=== PATIENT | male | born 1940 | race Caucasian/White ===

== ENCOUNTER → 2018-09-02 12:37 | Outpatient (POV) | payer MEDICARE, SELFPAY | PROVIDERS: Visit Provider Dermatology | DX: Z00.00 Encounter for general adult medical examination without abnormal findings (principal) ==

== ENCOUNTER → 2018-09-30 16:52 | Outpatient (POV) | payer MEDICARE, SELFPAY | PROVIDERS: Visit Provider Dermatology | DX: Z00.00 Encounter for general adult medical examination without abnormal findings (principal) ==

== ENCOUNTER → 2018-12-19 08:43 | Outpatient (CLI) | payer MEDICARE, SELFPAY ==
--- NOTE | 2018-12-19 08:46 | US_ITS ---
PROCEDURE: US GALLBLADDER CLINICAL INDICATION: gallstones Nausea and vomiting 1 week COMPARISON: [id number] CT abdomen pelvis w con from 12/10/2018 FINDINGS: Gallbladder: Cholelithiasis. Multiple, numerous small gallstones collecting at dependent gallbladder.. These correlate with the CT image from 12/10/2018 Gallbladder wall upper normal thickness. No discrete inflammatory changes. No pericholecystic fluid. Gallbladder normal size common duct is normal in diameter. Liver: Unremarkable. No focal lesion no intrahepatic biliary Ductal dilatation Portal vein normal diameter and direction flow Pancreas: Unremarkable/a fairly good visualization of head body and medial tail Right kidney: Unremarkable appearing. No hydronephrosis. Normal size 10.1 cm length IMPRESSION: Cholelithiasis. Common duct normal diameter. Liver, pancreas right kidney otherwise unremarkable Dictated by: Kemar Burns MD 12/19/2018 09:35 Signed by: <Electronically signed by Kemar Burns MD in [place]> 12/19/2018 09:35
== END ==
PROVIDERS: PCP Nurse Practitioner; Visit Provider Surgery
DX: K80.20 Calculus of gallbladder without cholecystitis without obstruction (principal)
CPT/HCPCS: 76705

== ENCOUNTER → 2018-12-22 09:54 | Outpatient (CLI) | payer MEDICARE, SELFPAY ==
--- NOTE | 2018-12-22 10:12 | ECG_ITS ---
APPROVED REPORT Exam: Resting ECG HR:70 bpm ECG Measurements Heart Rate 70 AXES SC 150 P 75 QRSd 104 QRS -67 QT 420 T 14 QTc 453 <Conclusion> Normal sinus rhythm Left anterior fascicular block Abnormal ECG Electronically signed by : Jermaine Ayon, 12/22/2018 16:50:50
[2018-12-22 10:39] LABS: Basophils % 0.5 % (0.1-2.0); Eosinophils # 0.2 K/mm3 (0.0-0.4); Eosinophils % 2.7 % (0.1-12.0); Hematocrit 42.9 % (42.0-52.0); Lymphocytes # 2.1 K/mm3 (0.7-4.5); Lymphocytes % 26.6 % (10-50); Mean Corpuscular HGB Conc 32.6 g/dL (31.8-35.4); Mean Corpuscular Hemoglobin 32.5 pg (27.0-31.2); Mean Corpuscular Volume 99.9 fl (80-94); Mean Platelet Volume 7.2 fl (7.4-10.4); Monocytes # 0.6 K/mm3 (0.1-1.0); Monocytes % 7.6 % (1.7-9.3); Neutrophils # 4.9 K/mm3 (1.8-7.8); Neutrophils % 62.5 % (37.0-80.0); Platelet Count 317 K/mm3 (142-424); Red Cell Distribution Width 12.8 % (11.5-17.5); White Blood Count 7.8 K/mm3 (4.8-10.8)
[2018-12-22 13:37] LABS: Alanine Aminotransferase 37 U/L (12-78); Albumin Level 3.6 gm/dL (3.4-5.0); Albumin/Globulin Ratio 1.1 (1.1-1.8); Alkaline Phosphatase 97 U/L (46-116); Aspartate Amino Transferase 18 U/L (15-37); Bilirubin,Total 0.3 mg/dL (0.2-1.0); Blood Urea Nitrogen 23 mg/dL (7-18); Calcium 9.5 mg/dL (8.5-10.1); Carbon Dioxide 30 mmol/L (21.0-32.0); Chloride 107 mmol/L (98-107); Creatinine,Serum 1.25 mg/dL (0.70-1.30); Estimated Glomerular Filt Rate 56 ml/min (>60); GFR (African American) 68 ML/MIN (>60); Globulin 3.4 gm/dl (1.3-3.2); Glucose 85 mg/dL (74-106); Sodium 145 mmol/L (136-145)
== END ==
PROVIDERS: Visit Provider Surgery
DX: Z01.818 Encounter for other preprocedural examination (principal); K81.1 Chronic cholecystitis
CPT/HCPCS: 36415; 80053; 85025; 93005

== ENCOUNTER → 2019-06-05 13:38 | Outpatient (CLI) | payer MEDICARE, SELFPAY ==
--- NOTE | 2019-06-05 14:31 | CA_ITS ---
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: Rachelle Palomino RT(R) Laterality: Bilateral Indications: HTN, dizziness Risk Factors Hypertension: Doppler Spectral Velocity Analysis ECA (R) 127.20/16.00 cm/s ECA (L) 184.50/20.50 cm/s dICA (R) 71.80/26.20 cm/s dICA (L) 99.10/34.20 cm/s Kaden (R) 158.90/42.30 cm/s Kaden (L) 192.10/61.50 cm/s pICA (R) 164.00/61.50 cm/s pICA (L) 143.50/39.70 cm/s dCCA (R) 90.50/23.90 cm/s dCCA (L) 92.00/19.20 cm/s pCCA (R) 92.00/23.20 cm/s pCCA (L) 147.60/25.70 cm/s Vert (R) 112.30/10.70 cm/s Vert (L) 107.60/30.70 cm/s ICA/CCA 1.81 ICA/CCA 2.09 Findings Duplex evaluation demonstrates stenosis of the right proximal internal carotid artery in the range of 50-69% with PSV =140 cm/sec, EDV <100 cm/sec, and IC/CC Ratio <4.0.Duplex evaluation demonstrates stenosis of the left proximal internal carotid artery in the range of 50-69% with PSV =140 cm/sec, EDV <100 cm/sec, and IC/CC Ratio <4.0. Conclusion Duplex evaluation demonstrates stenosis of the right proximal internal carotid artery in the range of 50-69% and stenosis of the left proximal internal carotid artery in the range of 50-69% Electronically signed by : Zion Beach MD 06/05/2019 17:46:25
--- NOTE | 2019-06-05 14:31 | CA_ITS ---
APPROVED REPORT EXAM: Comprehensive 2D, Doppler, and color-flow Echocardiogram Denture Finisher: Criselda Bray CRT Ht: 5 ft 8 in Wt: 152lbs BSA: 1.82 BP: 176/90 mmHg Indications: DIZZINESS, HTN, STENTS IN LEG SOB, SYNCOPE 2D Dimensions LVOT 1.75 cm (M/F) 1.5-2.5 M-Mode Dimensions RVDd 2.40 cm (0.9-2.6) LVDd 5.21 cm (3.5-5.7) LVDs 3.92 cm (3.5-5.7) IVSd 1.21 cm (0.6-1.1) PWd 0.83 cm (0.6-1.1) EF (Teich) 48.70% FS 24.80% EDV (Teich) 130.10 mL ESV (Teich) 66.70 mL Left Ventricle Left atrium is mildly enlarged, left ventricle is normal size, visually estimated ejection fraction approximately 45% with no regional wall motion abnormality, endocardial surfaces are poorly visualized, grade 1 diastolic dysfunction seen without tissue Doppler evidence of raise left atrial pressure. Right Ventricle Right atrium and right ventricle are normal size and contractility. Aortic Valve Aortic valve is minimally thickened and fibrosed. There is no aortic stenosis aortic insufficiency. Mitral Valve Mitral valve leaflets are minimally thickened, there is no mitral stenosis, there is mild mitral regurgitation. Tricuspid Valve Tricuspid valve is grossly normal, there is mild tricuspid regurgitation. Pulmonic Valve Pulmonic valve is poorly visualized. Great Vessels Aortic root is normal size. Pericardium No significant pericardial effusion noted. Conclusion 1. Mildly enlarged left atrium, normal left ventricular size, visually estimated ejection fraction 45% with no regional wall motion abnormality, grade 1 diastolic dysfunction seen without tissue Doppler evidence of raise left atrial pressure. 2. Mild mitral and tricuspid regurgitation. 3. No significant pericardial effusion noted. Electronically signed by : Lonnie Adams, 06/05/2019 15:59:05
== END ==
PROVIDERS: PCP Nurse Practitioner; Visit Provider Nurse Practitioner
DX: R42 Dizziness and giddiness (principal); R55 Syncope and collapse
CPT/HCPCS: 93005; 93225; 93226; 93306; 93880

== ENCOUNTER → 2019-10-05 09:57 | Outpatient (CLI) | payer MEDICARE, SELFPAY ==
--- NOTE | 2019-10-05 10:13 | CT_ITS ---
PROCEDURE: CT HEAD/BRAIN WO CON CLINICAL INDICATION: PARESTHESIA OF HAND Bilateral hand numbness COMPARISON: HEADWO CT head/brain wo con from 12/30/2017 TECHNIQUE: Axial images obtained. All CT scans at the facility use one or more dose reduction, viz: automated exposure control, ma/kV adjustment per patient size (including targeted exams where dose is matched to indication, i.e. head), or iterative reconstruction technique. FINDINGS: No midline shift, mass effect, intracranial hemorrhage, hydrocephalus, or extra-axial fluid collection is evident. There is generalized atrophy with hypoattenuation of the periventricular white matter consistent with microangiopathic changes.. Intracranial vascular calcification noted. There is also incidental calcification noted of the basal ganglia on both sides not significantly changed. The calvarium has an unremarkable appearance. No mastoid effusion. No sinus air-fluid level. IMPRESSION: No acute intracranial finding Dictated by: Zion Beach MD 10/05/2019 11:00 Electronically signed by Zion Beach MD in [place] 10/05/2019 11:00
== END ==
PROVIDERS: PCP Nurse Practitioner; Visit Provider Nurse Practitioner
DX: R20.2 Paresthesia of skin (principal)
CPT/HCPCS: 70450

== ENCOUNTER 2021-11-23 14:37 | Inpatient (IN) | payer MEDICARE, SELFPAY ==
[2021-11-23] VITALS (22 sets, daily range): BP systolic 122–171; BP diastolic 59–101; PULSE 73–120; RESP 16–22; TEMP 36.6–37.4; O2SAT 88–99; BMI 23.7; BMI 27.7
--- NOTE | 2021-11-23 | IR_ITS ---
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 COMPLICATIONS NONE Estimated Blood Loss: LESS THAN 10 ML TECHNIQUE One percent lidocaine used to anesthetize the right anterior aspect of the wrist. The right radial artery was accessed via the Seldinger technique. A 6 Maltese sheath was placed in the right radial artery. 2.5 mg of verapamil, 800 mcg of nitroglycerin, 1mg Lidocaine and 5000 U Heparin were given through the arterial sheath. The papa catheter was also used to perform selective coronary angiogram. A Choice PT extra-support wire was placed in the LAD and a 2.5 x 12 mm balloon was quickly taken at 20 adryan and down in the distal left main artery extending into the proximal LAD. Following this a 3 mm x 12 mm balloon was then placed in the distal left main artery to the proximal ID deployed at 20 adryan and quickly deflated. Following this a 3.5 x 22 mm resolute Ben stent was placed in the left main artery extending into the ostial LAD and deployed at 24 adryan, following this a 4 mm x 12 mm balloon was deployed at 24 adryan in the ostial LAD extending back to the left main artery and then in the mid and ostial portion of the left main artery each 1 deployed at 24 adryan. An additional wire was placed into the circumflex artery and into the first obtuse marginal artery. A 2 mm x 12 mm balloon was then placed in the ostium of the circumflex artery back into the left main artery opening the struts going into the circumflex artery. A 2.5 x 12 mm balloon was then taken at 20 adryan in the same area as well as in the proximal and midportion of the first obtuse marginal artery. A 2.5 x 38 mm resolute Ben stent was deployed at 16 adryan in the mid to proximal first obtuse marginal artery extending back into the circumflex artery. A 2.75 x 22 mm resolute Ben stent was then placed in the ostium of the left circumflex artery overlapping the 2.5 mm stent deployed at 24 adryan. Following this excellent angiographic results were obtained therefore the apparatus was removed from the circumflex artery and a 4 mm balloon was placed in the proximal LAD. A 3.5 x 8 mm resolute [place] stent was deployed at 24 adryan in the proximal LAD reducing the calcified stenosis to 0%. JAZLYN II flow was present at the beginning of the procedure and the left main artery LAD circumflex artery and obtuse marginal artery with JAZLYN-3 flow being present at the end of the procedure. In the procedure the apparatus was removed the sheath was removed and hemostasis was achieved using TR banding patient was transferred to the postop putting in stable condition. Intravascular ultrasound probe was advanced into the distal left main artery to evaluate for sizing as well as in the ostial LAD. There was good stent apposition however there was dense calcification left main artery however given the excellent angiographic and clinical results it was decided not to further post dilate the left main artery. ANGIOGRAPHIC RESULTS The left main artery Has an ostial 50% stenosis in the distal 95% critical eccentric stenosis The left anterior descending artery Has severe calcified proximal stenosis 30 to 40% with mid vess
--- NOTE | 2021-11-23 14:48 | XR_ITS ---
FINAL REPORT CLINICAL HISTORY: chest pain FINDINGS: TWO-VIEW CHEST The heart size is normal. The mediastinum is normal. There is bilateral apical pleural thickening. There is mild atelectasis or scar in the lung bases. Multiple calcified granulomas are seen in the right upper lobe. There is no pneumothorax. IMPRESSION: Mild atelectasis/scar in the lung bases. Reviewed, Interpreted and Dictated by Gumaro Good III, MD Transcribed by Kyra Lord Authenticated and [facility]
--- NOTE | 2021-11-23 14:52 | PC.NURSE ---
t the bedside with pt. IV established and blood sent to the lab.
--- NOTE | 2021-11-23 15:07 | PC.NURSE ---
pt going to rad with tech.
[2021-11-23 15:08] LABS: Basophils % 0.4 % (0.1-2.0); Eosinophils # 0.2 K/mm3 (0.0-0.4); Eosinophils % 2.1 % (0.1-12.0); Hematocrit 36.3 % (42.0-52.0); Hemoglobin 12.1 g/dL (14.1-18.0); Mean Corpuscular HGB Conc 33.3 g/dL (31.8-35.4); Mean Corpuscular Hemoglobin 32.3 pg (27.0-31.2); Mean Platelet Volume 8.3 fl (7.4-10.4); Monocytes # 0.6 K/mm3 (0.1-1.0); Monocytes % 6.5 % (1.7-9.3); Neutrophils # 5.9 K/mm3 (1.8-7.8); Platelet Count 273 K/mm3 (142-424); Red Blood Count 3.74 M/mm3 (4.60-6.20); Red Cell Distribution Width 12.2 % (11.5-17.5); White Blood Count 8.7 K/mm3 (4.8-10.8)
--- NOTE | 2021-11-23 15:11 | PC.NURSE ---
pt back from RAD, back in bed with at BS
--- NOTE | 2021-11-23 15:14 | PC.NURSE ---
rounded on pt at this time. updated on POC. no needs at this time
--- NOTE | 2021-11-23 15:14 | HMH.EDCP ---
ED Disposition Clinical Impression: NSTEMI (non-ST elevated myocardial infarction) Disposition: Admitted As Inpatient Condition on Discharge: Fair Referrals: Gaby Morin APRN [Primary Care Provider] - - Critical Care Critical Care Time: No Attestation: On 11/23/21, the high probability of a clinically significant, sudden or life threatening deterioration of the following system(s) required my full and direct attention, intervention and personal management. The time I documented below is in addition to time spent performing reported procedures but includes the following listed in this critical care notation. Medical Decision Making - Medical Records Medical records reviewed: Yes: I reviewed the patient's medical records. - Ty Inquiry Pt receiving controlled substance: No Vital Signs: 11/23/21 14:40 11/23/21 15:21 11/23/21 15:30 Temperature 98.4 F Temperature Source Oral Pulse Rate 80 81 Pulse Rate [Left Radial] 104 H Respiratory Rate 16 16 18 Blood Pressure 133/65 127/59 L Blood Pressure [Right Arm] 149/85 H Blood Pressure Mean 87 85 Blood Pressure Mean [Right Arm] 106 02 Sat by Pulse Oximetry 96 99 98 11/23/21 16:00 Temperature Temperature Source Pulse Rate 84 Pulse Rate [Left Radial] Respiratory Rate 18 Blood Pressure 122/59 L Blood Pressure [Right Arm] Blood Pressure Mean 78 Blood Pressure Mean [Right Arm] 02 Sat by Pulse Oximetry 96 - Lab Data Lab Results 11/23/21 14:43: WBC 8.7, RBC 3.74 L, Hgb 12.1 L, Hct 36.3 L, MCV 97.0 H, MCH 32.3 H, MCHC 33.3, RDW 12.2, Plt Count 273, MPV 8.3, Neut % (Auto) 68.0, Lymph % (Auto) 23.0, [place] % (Auto) 6.5, Eos % (Auto) 2.1, Baso % (Auto) 0.4, Neut # (Auto) 5.9, Lymph # (Auto) 2.0, [place] # (Auto) 0.6, Eos # (Auto) 0.2, Baso # (Auto) 0.0 11/23/21 14:43: Sodium 139, Potassium 4.5, Chloride 107, Carbon Dioxide 27, Anion Gap 9.5, BUN 30 H, Creatinine 1.80 H, Estimated Creat Clear 37, Estimated GFR 36 L, Est GFR ( Amer) 44 L, Glucose 118 H, Calcium 9.3, Troponin I 0.16 H 11/23/21 14:43: PT 10.9, INR 0.96, APTT 27.9 11/23/21 14:43: NT-Pro-B Natriuret Pep 322 Result diagrams: 11/23/21 14:43 11/23/21 14:43 Orders (Tests/Meds): ED MEDICATIONS Generic Name Dose Route Start Last Admin Trade Name Freq PRN Reason Stop Dose Admin Sodium Chloride 10 ml 11/23/21 14:51 Sodium Chloride 0.9% 10ml Flush Syringe IV 12/23/21 14:50 NEEDED PRN Maintain IV Site ORDERS Category Date Time Status Rapid PCR Covid and Flu A/B Stat Lab 11/23/21 16:06 Ordered Troponin I Q3H Lab 11/23/21 18:00 Ordered Troponin I Q3H Lab 11/23/21 21:00 Ordered - Radiology Data #1 Image(s): Chest Image Reviewed: Yes I reviewed the patient's radiology results, Yes I reviewed the patient's radiology image, Yes I have reviewed radiologist's interpretation IMPRESSION: Mild atelectasis/scar in the lung bases. - ECG Data Tracing #1 I reviewed this ECG and interpreted as documented below: No ventricular rate of 94 bpm, AL interval 165 ms. Normal QTC. Patient is nonspecific changes lateral precordial leads, incomplete right bundle branch block. ECG initial impression date: 11/23/21 ECG initial impression time: 14:35 - Reevaluation(s) Time: 16:13 Reevaluation #1: On reevaluation, the patient denies any chest discomfort. Is a very slightly elevated troponin. Given his chronic history of chest pain, EKG changes and elevated troponin I do believe he requires admission to the hospital. Cardiology was notified. Patient be admitted for further evaluation and treatment. - MARCOS Score for Non-Stemi Age of Patient: 80-89 years old Heart Rate: 90-109 bpm Systolic Blood Pressure: 140-159 mmHg Serum Creatinine: <0.40 mg/dl CHF Killip Class: I-No CHF Other Risk Factors: None Non-Stemi Risk Score: 131 Risk Stratification: 109-140 = Intermediate Ri Medical Decision Narrative: 81-year-old male presented to the emergency
[2021-11-23 15:15] LABS: Activated Partial Thrombo Time 27.9 seconds (22.8-30.6); INR 0.96 (0.9-1.1); Prothrombin Time 10.9 seconds (10.1-12.5)
[2021-11-23 15:20] LABS: Chloride 107 mmol/L (98-107); Potassium 4.5 mmoL/L (3.5-5.1); Sodium 139 mmol/L (136-145)
--- NOTE | 2021-11-23 15:21 | PC.NURSE ---
put BP CUFF back on pt no needs per pt or pt
[2021-11-23 15:23] LABS: Anion Gap 9.5 mEq/L (5-15); Blood Urea Nitrogen 30 mg/dl (9-20); Calcium 9.3 mg/dl (8.4-10.2); Carbon Dioxide 27 mmol/L (22.0-30.0); Creatinine Clearance Estimated 37 mL/min (50-200); Estimated Glomerular Filt Rate 36 ml/min (>60); GFR (African American) 44 ML/MIN (>60); Glucose 118 mg/dl (74-100)
--- NOTE | 2021-11-23 15:32 | PC.NURSE ---
Divya RN in room giving pt a blanket. updating pt on stay yet
[2021-11-23 15:33] LABS: NT Pro Brain Natriuretic Pep. 322 pg/mL (0-450)
[2021-11-23 15:35] LABS: Troponin I 0.16 ng/ml (0.00-0.034)
--- NOTE | 2021-11-23 15:47 | PC.NURSE ---
attempted to call report to second floor, healy clerks states receiving nurse just stepped into another pts room. States she will have her call me.
--- NOTE | 2021-11-23 15:48 | PC.NURSE ---
elevated troponin noted on pt's chart. lab called and asked if they notified staff. states they did not. MD notified at this time.
--- NOTE | 2021-11-23 16:00 | PC.NURSE ---
Dr. Larsen paged for ZARINA CRISTOBAL.
--- NOTE | 2021-11-23 16:04 | PC.NURSE ---
ZARIAN CRISTOBAL speaking with Dr. Sullivan at this time
--- NOTE | 2021-11-23 16:08 | PC.NURSE ---
Paged Dr. Barahona
--- NOTE | 2021-11-23 16:11 | PC.NURSE ---
ZARINA CRISTOBAL speaking with Dr. Barahona at this time
--- NOTE | 2021-11-23 16:14 | PC.NURSE ---
Spoke with Meagan in Care Management regarding patient admission.
--- NOTE | 2021-11-23 16:16 | PC.NURSE ---
Addendum entered by Whitney Emanuel 11/23/21 16:32: Already documented Original Note: ER MD at BS speaking with patient regarding course of action. Family at BS and has no questions at this time. they dont have any needs. pt hooked to monitor.
--- NOTE | 2021-11-23 16:21 | PC.NURSE ---
covid swab sent to lab; pt reports no needs at this time and is aware of ER MDs plan of action. they have no further questions at this time. call light within reach
[2021-11-23 16:23] LABS: Coronavirus 19, PCR Not Detected (NotDetected); Influenza A, PCR Not Detected (NotDetected); Influenza B, PCR Not Detected (NotDetected)
--- NOTE | 2021-11-23 16:53 | PC.NURSE ---
tianna riggs contacted care management and housekeeping director about pt admission, house states working on bed assignment for pt.
--- NOTE | 2021-11-23 17:00 | P.HP_ITS ---
*Admission Date: 11/23/21 <Tonia Gill 11/23/21 17:05> *Chief complaint: chest pain <Tonia Gill 11/23/21 17:05> *History of present illness: 81-year-old male presented to the emergency department with some nonspecific subacute chest discomfort. Patient's pain resolved with nitroglycerin. Concern for angina versus NSTEMI. Work-up initiated. On reevaluation, the patient denies any chest discomfort. Is a very slightly elevated troponin. Given his chronic history of chest pain, EKG changes and elevated troponin I do believe he requires admission to the hospital. Cardiology was notified. Patient be admitted for further evaluation and treatment. (above as per ER physician) Patient states for the last 3 weeks he has been having what he thought was GERD. He states he had left-sided chest pain that radiated down his left arm and up into his jaw with any exertion. He also would get diaphoretic and short of breath. He stated his symptoms would resolve with rest. Last night they started and did not stop. He therefore went to the emergency room today. <Tonia Gill 11/23/21 17:05> [facility] History I have reviewed the patient's past medical history: Yes <Tonia Gill 17:05> Medical History: Reports:: Gastroesophageal Reflux Disease(GERD), Hypertension Denies:: Cancer, Diabetes Mellitus Type 1, Diabetes Mellitus Type 2, Internal Pacemaker, MRSA, Seizures <Tonia Gill 11/23/21 17:05> *Have you ever received a pneumonia vaccine?: Yes <Tonia Gill 11/23/21 17:05> *Have you received a flu vaccine this season?: Yes <Tonia Gill 11/23/21 17:05> Other Medical History: Denies: Blood Transfusion Reaction <Tonia Gill 11/23/21 17:05> Other Surgeries: Yes: Cancer Surgery, Cardiac Catheterization, Cholecystectomy, Coronary Stent, Other. No: Pacemaker <Tonia Gill 11/23/21 17:05> Amputation: No <Tonia Gill 11/23/21 17:05> Fractures: No <Tonia Gill 11/23/21 17:05> - *Social History Smoking Status: Never smoker <Tonia Gill - 11/23/21 17:05> [facility] Intake: never [facility] 11/[facility]/21 17:05> Alcohol Intake Frequency:: other <[facility] 11/23/21 17:05> Substance Use Type: denies use <[facility] 11/23/21 17:05> *Occupational Status:: retired <[facility] 11/23/21 17:05> Housing: house <[facility] 11/23/21 17:05> Household Members: spouse <BridgetTonia - 11/23/21 17:05> *Travel in the last 8 weeks: None <[facility] 11/23/21 17:05> Family Hx:: Cancer <[facility] 11/23/21 17:05> Review of Systems - Constitutional Denies chills, Denies fever(s) <[facility] 11/23/21 17:05> - Eyes Denies blurry vision, Denies double vision <[facility] 11/23/21 17:05> - ENT Denies nasal congestion, Denies sore throat <[facility] 11/23/21 17:05> - *Cardiovascular Reports chest pain with activity, Reports shortness of breath with activity, Reports radiating jaw, neck or arm pain <[facility] 11/23/21 17:05> - *Respiratory Denies cough <[facility] 11/23/21 17:05> - *Gastrointestinal Denies abdominal pain, Denies loose stools, Denies nausea, Denies vomiting <[facility] 11/23/21 17:05> - *Genitourinary Denies difficulty urinating, Denies painful urination <[facility] 11/23/21 17:05> - *Musculoskeletal Reports radiating pain into limb, Denies joint pain <[facility] 11/23/21 17:05> - *Neurologic Denies headache(s), Denies dizziness, Denies weakness <[facility] 11/23/21 17:05> Meds Home Medications Medication Instruct
--- NOTE | 2021-11-23 17:00 | HMH.HP ---
*Admission Date: 11/23/21 <Tonia Gill 11/23/21 17:05> *Chief complaint: chest pain <Tonia Gill 11/23/21 17:05> *History of present illness: 81-year-old male presented to the emergency department with some nonspecific subacute chest discomfort. Patient's pain resolved with nitroglycerin. Concern for angina versus NSTEMI. Work-up initiated. On reevaluation, the patient denies any chest discomfort. Is a very slightly elevated troponin. Given his chronic history of chest pain, EKG changes and elevated troponin I do believe he requires admission to the hospital. Cardiology was notified. Patient be admitted for further evaluation and treatment. (above as per ER physician) Patient states for the last 3 weeks he has been having what he thought was GERD. He states he had left-sided chest pain that radiated down his left arm and up into his jaw with any exertion. He also would get diaphoretic and short of breath. He stated his symptoms would resolve with rest. Last night they started and did not stop. He therefore went to the emergency room today. <Tonia Gill 11/23/21 17:05> [facility] History I have reviewed the patient's past medical history: Yes <Tonia Gill 11/23/21 17:05> Medical History: Reports:: Gastroesophageal Reflux Disease(GERD), Hypertension Denies:: Cancer, Diabetes Mellitus Type 1, Diabetes Mellitus Type 2, Internal Pacemaker, MRSA, Seizures <Tonia Gill 11/23/21 17:05> *Have you ever received a pneumonia vaccine?: Yes <Tonia Gill 11/23/21 17:05> *Have you received a flu vaccine this season?: Yes <Tonia Gill 11/23/21 17:05> Other Medical History: Denies: Blood Transfusion Reaction <Tonia Gill 11/23/21 17:05> Other Surgeries: Yes: Cancer Surgery, Cardiac Catheterization, Cholecystectomy, Coronary Stent, Other. No: Pacemaker <Tonia Gill 11/23/21 17:05> Amputation: No <Tonia Gill 11/23/21 17:05> Fractures: No <Tonia Gill 11/23/21 17:05> - *Social History Smoking Status: Never smoker <Tonia Gill - 11/23/21 17:05> [facility]: [facility] 11/23/21 17:05> Alcohol Intake Frequency:: other <[facility] 11/23/21 17:05> Substance Use Type: denies use <[facility] 11/23/21 17:05> *Occupational Status:: retired <[facility] 11/23/21 17:05> Housing: house <[facility] 11/23/21 17:05> Household Members: spouse <[facility] 11/23/21 17:05> *Travel in the last 8 weeks: None <[facility] 11/23/21 17:05> Family Hx:: Cancer <[facility] 11/23/21 17:05> Review of Systems - Constitutional Denies chills, Denies fever(s) <[facility] 11/23/21 17:05> - Eyes Denies blurry vision, Denies double vision <[facility] 11/23/21 17:05> - ENT Denies nasal congestion, Denies sore throat <[facility] 11/23/21 17:05> - *Cardiovascular Reports chest pain with activity, Reports shortness of breath with activity, Reports radiating jaw, neck or arm pain <[facility] 11/23/21 17:05> - *Respiratory Denies cough <[facility] 11/23/21 17:05> - *Gastrointestinal Denies abdominal pain, Denies loose stools, Denies nausea, Denies vomiting <[facility] 11/23/21 17:05> - *Genitourinary Denies difficulty urinating, Denies painful urination <[facility] 11/23/21 17:05> - *Musculoskeletal Reports radiating pain into limb, Denies joint pain <[facility] 11/23/21 17:05> - *Neurologic Denies headache(s), Denies dizziness, Denies weakness <[facility] 11/23/21 17:05> Meds Home Medications Medication Instructions Recorded Confirmed Type Cetirizine HCl 10 mg PO DAILY 11/03/17 11/23/21 History Aspirin [Low Dose Aspirin EC] 81 mg PO DAILY 12/30/17 11/23/21 History Cranberry 500 mg PO DAILY 12/30/17 11/23/21 History Cyanocobalamin (Vitamin B-12) 5,000 mcg PO DAILY 12/30/17 11/23/21 History [Vitamin B12 5mg Tab] Magnesium Oxide [Magnesium] 400 mg PO DAILY 12/30/17 11/23/21 History Mul
--- NOTE | 2021-11-23 17:00 | PC.NURSE ---
updated pt on POC. attempted to call report to receiving nurse. states they will call back
--- NOTE | 2021-11-23 17:17 | PC.NURSE ---
nitro drip started per MD order
--- NOTE | 2021-11-23 17:30 | PC.NURSE ---
PT BECAME HR 120. PT C/O LT ARM AND LT SIDE JAW PAIN. DR DOBBS NOTIFIED. EKG ORDER
--- NOTE | 2021-11-23 17:31 | ECG_ITS ---
APPROVED REPORT Exam: Resting ECG HR:118 bpm ECG Measurements Heart Rate 118 AXES WV 171 P 74 QRSd 117 QRS -62 QT 324 T 90 QTc 394 Conclusion SINUS TACHYCARDIA RIGHT BUNDLE BRANCH BLOCK [120+ ms QRS DURATION, UPRIGHT V1, 40+ ms S IN I/aVL/V4/V5/V6] LEFT ANTERIOR FASCICULAR BLOCK [QRS AXIS <= -45, QR IN I, RS IN II] LEFT VENTRICULAR HYPERTROPHY AND ST-T CHANGE [VOLTAGE CRITERIA PLUS ST/T ABNORMALITY] POSSIBLE SEPTAL MYOCARDIAL INFARCTION , OF INDETERMINATE AGE [30 ms Q WAVE IN V1/V2] ABNORMAL ECG UNCONFIRMED REPORT Electronically signed by : Jeff Olmos MD 11/24/2021 15:36:06
--- NOTE | 2021-11-23 17:33 | PC.NURSE ---
PT STATES NOW PAIN FREE.
--- NOTE | 2021-11-23 17:40 | PC.NURSE ---
ZARINA CRISTOBAL speaking with Dr. Larsen at this time
--- NOTE | 2021-11-23 17:47 | PC.NURSE ---
gave verbal order for shannan SL. administered to pt
--- NOTE | 2021-11-23 17:53 | PC.NURSE ---
Dr. Sullivan speaking with Dr. Larsen again
--- NOTE | 2021-11-23 17:55 | PC.NURSE ---
Dr. Barahona at speaking with patient
--- NOTE | 2021-11-23 17:57 | CT_ITS ---
PROCEDURE INFORMATION: Exam: CTA Chest With Contrast Exam date and time: 11/23/21 05:59 PM Age: 81 years old Clinical indication: Chest wall pain; Additional info: Chest pain TECHNIQUE: Imaging protocol: Computed tomographic angiography of the chest with contrast. 3D rendering (Not supervised by radiologist): MIP and/or 3D reconstructed images were created by the technologist. Radiation optimization: All CT scans at this facility use at least one of these dose optimization techniques: automated exposure control; mA and/or kV adjustment per patient size (includes targeted exams where dose is matched to clinical indication); or iterative reconstruction. Contrast material: ISOVUE 370; Contrast volume: 70 ml; Contrast route: INTRAVENOUS (IV); COMPARISON: CR XR CHEST 2V 11/23/21 03:00 PM FINDINGS: Pulmonary arteries: No CT evidence of pulmonary embolus. Aorta: Unremarkable. No aortic aneurysm. No aortic dissection. Lungs: Right upper lobe and right lower lobe interstitial infiltrates in the dependent lung. Peribronchial thickening right greater than left. Pleural spaces: Unremarkable. No pneumothorax. No pleural effusion. Heart: Unremarkable. No cardiomegaly. No pericardial effusion. Lymph nodes: Unremarkable. No enlarged lymph nodes. Bones/joints: Unremarkable. No acute fracture. Soft tissues: Unremarkable. IMPRESSION: 1. Right upper lobe and right lower lobe interstitial infiltrates in the dependent lung. 2. Peribronchial thickening right greater than left. 3. No CT evidence of pulmonary embolus.
--- NOTE | 2021-11-23 18:00 | PC.NURSE ---
Notified radiology of CTA order add on
--- NOTE | 2021-11-23 18:07 | PC.WOUNDNOTE ---
TO CT PER STRETCHER
--- NOTE | 2021-11-23 18:19 | PC.NURSE ---
pt back from CT via stretcher with water quality technician
--- NOTE | 2021-11-23 18:25 | PC.NURSE ---
heparin drip started per MD order
--- NOTE | 2021-11-23 18:35 | PC.NURSE ---
called report to tianna alves. assisted living housekeeper called for transport of pt to the floor.
--- NOTE | 2021-11-23 18:44 | PC.NURSE ---
pt transported to med/surg via stretcher by superintendent house at this time
[2021-11-23 19:08] LABS: Troponin I 3.05 ng/ml (0.00-0.034)
--- NOTE | 2021-11-23 19:08 | PC.NURSE ---
received call from lab reporting Troponin 3.05. Name and verified. Dr. Larsen notified.
--- NOTE | 2021-11-23 19:30 | PC.NURSE ---
received call from Dr. Larsen with new orders: give Metoprolol 5mg IV x 1 dose NOW, keep HR<80, and call him back in 15 min with an update. Report given to Blank Thomas RN. Metoprolol order faxed to [facility] and given @ 19:30.
--- NOTE | 2021-11-23 20:52 | PC.NURSE ---
PT OFF FLOOR VIA BED AT THIS TIME
[2021-11-23 22:28] LABS: CATHL Activated Clotting Time 276 SEC (74-125)
[2021-11-23 22:28] LABS: CATHL Activated Clotting Time 253 SEC (74-125)
--- NOTE | 2021-11-23 23:06 | PC.NURSE ---
PT BACK TO FLOOR AT THIS TIME
[2021-11-24] VITALS (17 sets, daily range): BP systolic 118–155; BP diastolic 61–87; PULSE 69–96; RESP 16–33; TEMP 36.6–37.3; O2SAT 90–99; BMI 27.7; BMI 27.6
--- NOTE | 2021-11-24 03:36 | PC.NURSE ---
Pt has slept at intervals since arriving back to floor from rd lab technician. Pt denies any CP. Has c/o soa at times this shift. Scattered wheezing noted. Pt is currently on 2L O2 NC. Education provided on medications and post cath care. VSS. Call light within reach.
--- NOTE | 2021-11-24 06:02 | ECG_ITS ---
APPROVED REPORT Exam: Resting ECG HR:88 bpm ECG Measurements Heart Rate 88 AXES VT 156 P 66 QRSd 92 QRS -49 QT 386 T 85 QTc 432 Conclusion SINUS RHYTHM LEFT ANTERIOR FASCICULAR BLOCK [QRS AXIS <= -45, QR IN I, RS IN II] ST DEVIATION AND MODERATE T-WAVE ABNORMALITY, CONSIDER LATERAL ISCHEMIA [-0.1+ mV T-WAVE IN I/aVL/V5/V6] ABNORMAL ECG UNCONFIRMED REPORT Electronically signed by : Jeff Olmos MD 11/24/2021 15:35:14
[2021-11-24 06:04] LABS: Basophils % 0.3 % (0.1-2.0); Eosinophils # 0.1 K/mm3 (0.0-0.4); Eosinophils % 0.5 % (0.1-12.0); Hematocrit 39.3 % (42.0-52.0); Lymphocytes # 1.9 K/mm3 (0.7-4.5); Lymphocytes % 11.9 % (10-50); Mean Corpuscular HGB Conc 33.2 g/dL (31.8-35.4); Mean Corpuscular Hemoglobin 32.8 pg (27.0-31.2); Mean Corpuscular Volume 98.9 fl (80-94); Mean Platelet Volume 7.9 fl (7.4-10.4); Monocytes # 1.2 K/mm3 (0.1-1.0); Monocytes % 7.5 % (1.7-9.3); Neutrophils # 12.7 K/mm3 (1.8-7.8); Neutrophils % 79.9 % (37.0-80.0); Platelet Count 287 K/mm3 (142-424); Red Blood Count 3.97 M/mm3 (4.60-6.20); Red Cell Distribution Width 12.4 % (11.5-17.5); White Blood Count 15.8 K/mm3 (4.8-10.8)
[2021-11-24 06:06] LABS: MANUAL DIFFERENTIAL MANUAL DIFFERENTIAL (MANUAL DIFF)
[2021-11-24 06:10] LABS: Anion Gap 12.7 mEq/L (5-15); Blood Urea Nitrogen 28 mg/dl (9-20); Carbon Dioxide 25 mmol/L (22.0-30.0); Chloride 106 mmol/L (98-107); Creatinine Clearance Estimated 36 mL/min (50-200); Estimated Glomerular Filt Rate 36 ml/min (>60); GFR (African American) 44 ML/MIN (>60); Glucose 133 mg/dl (74-100); Potassium 4.7 mmoL/L (3.5-5.1); Sodium 139 mmol/L (136-145)
--- NOTE | 2021-11-24 06:13 | PC.NURSE ---
Pt c/o discomfort to chest this AM. Pt rates pain 3-4. Pt also states it is not like it was yesterday. EKG obtained for MD review. MD Larsen notified. New orders received to give Morphine IV per jul. Clarified lisinopril order on jul. told that pt states he takes 5 mg of med in AM and PM. Per MD Larsen, give Lisinopril 5 mg PO this AM.
[2021-11-24 06:36] LABS: Lymphocytes % 11 % (10-50); Monocytes % 4 % (2-9); Neutrophils % 85 % (42-76); Platelet Estimate Normal; RBC Morphology Normal; Total Cells Counted 100
--- NOTE | 2021-11-24 06:49 | CA_ITS ---
APPROVED REPORT EXAM: Comprehensive 2D, Doppler, and color-flow Echocardiogram Pmo Consultant: Elisabet Bermeo RVT Ht: 5 ft 6 in Wt: 176lbs BSA: 1.89 BP: 156/92 mmHg Indications: NSTEMI,CP,HTN,GERD Echo Enhancing Agent Indication: Endocardial border delineation Agent(s) / Amount(s) Used: Definity 2 cc 2D Dimensions LVOT 2.19 cm (M/F) 1.5-2.5 LA Volume 31.70 mL LA Volume Index 16.77 mL/m2 (M/F) 16-34 M-Mode Dimensions RVDd 2.09 cm (0.9-2.6) LA Diam 3.45 cm (1.9-4.0) LVDd 5.55 cm (3.5-5.7) Ao Diam 3.20 cm (2.0-3.7) LVDs 4.53 cm (3.5-5.7) IVSd 0.74 cm (0.6-1.1) PWd 0.49 cm (0.6-1.1) EF (Teich) 43.20% FS 21.60% EDV (Teich) 165.20 mL ESV (Teich) 93.90 mL LV Diastology E Decel Time 157.00 (160-240 msec) E/A Ratio 0.7 MED E' 4.20 (< 7 cm/sec) E'/MED E' Ratio 13.45 (>14) LAT E' 4.20 (<10 cm/sec) E/LAT E' Ratio 13.45 (>14) Aortic Valve AO Peak GR. 3.60 mmHg Mitral Valve MV E Max Janes. 57.00 (40-130 cm/s) MV A Velocity 80.00 (40-130 cm/s) E/A Ratio 0.70 MV Decel. Time 157.00 (160-240 ms) MV PHT 46.00 ms Pulmonary Valve PV Peak Velocity 69.00 (50-150 cm/s) Left Ventricle Left atrium is mildly enlarged, left ventricle is normal size mild concentric left ventricular hypertrophy, estimated ejection fraction 30%, there is marked hypokinesis involving mid to distal septum, anterior, anterior apical and apical wall. Definity contrast was utilized to delineate the endocardial surfaces, there is no left ventricular thrombus seen. Grade 1 diastolic dysfunction without tissue Doppler evidence of raise left atrial pressure. Right Ventricle Right atrium and right ventricle are normal size and contractility. Aortic Valve Aortic valve is minimally thickened and fibrosed there is no aortic stenosis or aortic insufficiency. Mitral Valve Mitral valve is minimally thickened mild mitral regurgitation. Tricuspid Valve Tricuspid grossly normal, there is mild tricuspid regurgitation, tricuspid regurgitation jet velocity is inadequate for calculation of the right ventricular systolic pressure. Pulmonic Valve Pulmonic valve is poorly visualized. Great Vessels Aortic root is normal size. Inferior vena cava is poorly visualized. Pericardium No significant pericardial effusion noted. Conclusion 1. Mildly enlarged left atrium, normal left ventricular size mild concentric left ventricular hypertrophy, estimated ejection fraction approximately 30% with multiple segmental wall motion abnormality described above, grade 1 diastolic dysfunction seen without tissue Doppler evidence of raise left atrial pressure, Definity contrast was utilized to delineate the endocardial surfaces, there is no left ventricular thrombus seen. 2. Mild mitral and tricuspid regurgitation. 3. No significant pericardial effusion noted. Electronically signed by : Lonnie Adams MD 11/24/2021 15:48:50
--- NOTE | 2021-11-24 07:46 | P.CONPHA_ITS ---
[facility] Pharmacy VTE Monitoring - Patient Demographics Admission date: 11/24/21 Report Date: 11/24/21 Time: 07:46 Allergies/Adverse Reactions: Patient Allergies clopidogrel [From PLAVIX] Allergy (Unknown, Verified 11/23/21 11:08) I-RASH sulfamethoxazole [From BACTRIM] Allergy (Unknown, Verified 11/23/21 11:08) I-HIVES trimethoprim [From BACTRIM] Allergy (Unknown, Verified 11/23/21 11:08) I-HIVES Height: 1.7 m Weight: 80.059 kg Patient Problems: Current Active Problems NSTEMI (non-ST elevated myocardial infarction) (Acute) Hypertension (Chronic) Acute kidney injury (Acute) Chest pain (Acute) - VTE Risk Labs: VTE Related Lab Results Hgb 13.0 g/dL (14.1-18.0) L 11/24/21 05:30 Hct 39.3 % (42.0-52.0) L 11/24/21 05:30 Plt Count 287 K/mm3 (142-424) 11/24/21 05:30 PT 10.9 seconds (10.1-12.5) 11/23/21 14:43 INR 0.96 (0.9-1.1) 11/23/21 14:43 APTT 27.9 seconds (22.8-30.6) 11/23/21 14:43 BUN 28 mg/dl (9-20) H 11/24/21 05:30 Creatinine 1.80 mg/dl (0.66-1.25) H 11/24/21 05:30 Estimated Creat Clear 36 mL/min (50-200) 11/24/21 05:30 Was VTE Risk Assessment Performed: Yes VTE Risk Level: Moderate Risk Clinical Trial Participant: No - Prophylaxis VTE Prophylaxis Ordered?: Yes Types of VTE Prophylaxis: TEDS Knee High, Pharmacological Pharmacologic Type: Enoxaparin
--- NOTE | 2021-11-24 07:50 | HMH.PHAINT ---
VERIFIED HOME MEDICATION LIST USING LIST FROM OUTPATIENT PHARMACY AND PT INTERVIEW
--- NOTE | 2021-11-24 09:01 | HMH.ACPN2 ---
<Tonia Gill - Last Filed: 11/24/21 09:01> Internal Medicine - PN: Subj *Date: 11/24/21 *Time: 09:01 Interval history: Patient had a heart cath last night and received 2 stents. He has been started on Brilinta and aspirin. His creatinine was elevated and due to the contrast, cardiology wanted him to have IV fluids and be monitored for 48 hours. He states he is feeling great this morning after he has eaten breakfast. He denies any chest pain or shortness of breath. Exam Vital signs and Labs for Last 24 Hours: Temp Pulse Resp BP Pulse Ox 99.1 F 76 19 138/86 95 11/24/21 03:50 11/24/21 08:00 11/24/21 06:00 11/24/21 06:00 11/24/21 06:00 Laboratory Results - last 24 hr 11/23/21 14:43: WBC 8.7, RBC 3.74 L, Hgb 12.1 L, Hct 36.3 L, MCV 97.0 H, MCH 32.3 H, MCHC 33.3, RDW 12.2, Plt Count 273, MPV 8.3, Neut % (Auto) 68.0, Lymph % (Auto) 23.0, [place] % (Auto) 6.5, Eos % (Auto) 2.1, Baso % (Auto) 0.4, Neut # (Auto) 5.9, Lymph # (Auto) 2.0, [place] # (Auto) 0.6, Eos # (Auto) 0.2, Baso # (Auto) 0.0 11/23/21 14:43: Sodium 139, Potassium 4.5, Chloride 107, Carbon Dioxide 27, Anion Gap 9.5, BUN 30 H, Creatinine 1.80 H, Estimated Creat Clear 37, Estimated GFR 36 L, Est GFR ( Amer) 44 L, Glucose 118 H, Calcium 9.3, Troponin I 0.16 H 11/23/21 14:43: PT 10.9, INR 0.96, APTT 27.9 11/23/21 14:43: NT-Pro-B Natriuret Pep 322 11/23/21 16:17: SARS-CoV-2 (PCR) Not detected, Influenza A Untype (PCR) Not detected, Influenza Type B (PCR) Not detected 11/23/21 18:29: Troponin I 3.05 H 11/23/21 21:12: Activated Clotting Time 253 H* 11/23/21 21:58: Activated Clotting Time 276 H* 11/24/21 05:30: WBC 15.8 H D, RBC 3.97 L, Hgb 13.0 L, Hct 39.3 L, MCV 98.9 H, MCH 32.8 H, MCHC 33.2, RDW 12.4, Plt Count 287, MPV 7.9, Neut % (Auto) 79.9, Lymph % (Auto) 11.9, [place] % (Auto) 7.5, Eos % (Auto) 0.5, Baso % (Auto) 0.3, Neut # (Auto) 12.7 H, Lymph # (Auto) 1.9, [place] # (Auto) 1.2 H, Eos # (Auto) 0.1, Baso # (Auto) 0.0, Total Counted 100, Neutrophils % (Manual) 85 H, Lymphocytes % (Manual) 11, Monocytes % (Manual) 4, Platelet Estimate Normal, RBC Morphology Normal 11/24/21 05:30: Sodium 139, Potassium 4.7, Chloride 106, Carbon Dioxide 25, Anion Gap 12.7, BUN 28 H, Creatinine 1.80 H, Estimated Creat Clear 36, Estimated GFR 36 L, Est GFR ( Amer) 44 L, Glucose 133 H, Calcium 9.0 I & O for Last 24 hours: Intake & Output 11/21/21 11/22/21 11/23/21 11/24/21 11:59 11:59 11:59 11:59 Output Total 960 / 960 Balance -960 / -960 Weight 176 lb 8 oz - Constitutional no acute distress - *Routine Respiratory Exam Present: CTA bilaterally - *Routine Cardiovascular Exam Present: RRR - *Routine Abdominal Exam Present: soft, normoactive bowel sounds. Absent: tenderness - *Routine Extremities Exam Absent: cyanosis, clubbing, edema - *Routine Skin Exam Present: warm. Absent: rash - *Routine Neurological Exam Present: alert, oriented X3 Assessment and Plan (1) NSTEMI (non-ST elevated myocardial infarction) Status: Acute Category: Medical Code(s): I21.4 - Non-ST elevation (NSTEMI) myocardial infarction (2) Acute kidney injury Status: Acute Category: Medical Code(s): N17.9 - Acute kidney failure, unspecified (3) Hypertension Status: Chronic Category: Medical Code(s): I10 - Essential (primary) hypertension (4) Chest pain Status: Acute Category: Medical Code(s): R07.9 - Chest pain, unspecified (5) Stented coronary artery Status: Acute Category: Surgical Code(s): Z95.5 - Presence of coronary angioplasty implant and graft - Assessment and plan all Dx Assessment and Plan for all problems:: Patient will be kept for 48 hours on IV fluids and will monitor his kidney function. <Jorge Barahona - Last Filed: 11/24/21 09:08> Internal Medicine - PN: Subj *Date: 11/24/21 *Time: 09:08 Exam Vital signs and Labs for Last 24 Hours: Temp Pulse Resp BP Pulse Ox 98.2 F 76 19 138/86 95 07/2
--- NOTE | 2021-11-24 10:05 | HMH.CNCARD ---
History of Present Illness Consult date: 11/24/21 Consult reason: chest pain Chief complaint: chest pain Additional Medical History:: Past medical hx GERD HTN History of present illness: 81 year old male with past medical hx as above presented to ED last night with left sided chest pain. Patient reports has had intermittent episodes of chest pressure x 2 weeks. reports pain would radiate up to neck. Patient states he thought it was his GERD acting up. Yesterday got up to mow the yard and pain started but was more intense then previously which prompted patient to call EMS. Patient states by the time EMS got there pain was 10/10 and did get some relief with nitro. Upon presentation to ED initial trop was 0.16 which increased to 3.05. EKG negative for acute changes. Patient was admitted and taken to cleaner laboratory equipment. See cath report below. ANGIOGRAPHIC RESULTS The left main artery Has an ostial 50% stenosis in the distal 95% critical eccentric stenosis The left anterior descending artery Has severe calcified proximal stenosis 30 to 40% with mid vessel calcified 30% stenosis The circumflex artery Nondominant yet still large vessel and has proximal 80% stenosis which extends into small to medium sized first obtuse marginal artery. The first obtuse marginal artery has a proximal 90% stenosis. A larger second obtuse marginal artery has a proximal 90% stenosis The right coronary artery There is a dominant vessel and has an ostial proximal calcified 70% stenosis with mid vessel calcified long 80% stenosis which extends throughout the mid and distal portion. The posterior descending artery have a proximal concentric 50% stenosis while the posterior lateral branch has proximal 70 and a mid vessel 90% stenosis The ROPER ventriculogram reveals Not performed The left ventricular end-diastolic pressure Not measured IMPRESSION Critical distal left main disease as described above Successful stenting of the entire left main artery critical disease reduced to 0% with 1 drug-eluting stent Successful stenting of a critical ostial LAD reducing the stenosis to 0% Successful stenting of a critical ostial proximal circumflex artery which extended into a large second obtuse marginal artery Persistent severe calcified stenoses throughout the dominant right coronary PLAN 1. Brilinta 90 twice daily plus aspirin 81 mg daily 2. LDL less than 55 to be achieved with high intensity statin 3. No attempt will be made to revascularize the dominant right coronary artery. This is extensively and diffusely calcified and very unlikely to have successful results. JAZLYN-3 flow was present therefore I believe medical management is most desirable and should be easily achievable 4. Cardiac rehabilitation 5. Echocardiogram in the morning 6. Patient's creatinine is elevated and he did receive a lot of contrast today. Gentle IV fluids and monitor in the hospital for at least 48 hours [facility] History Medical History: Reports:: Gastroesophageal Reflux Disease(GERD), Hypertension Denies:: Cancer, Diabetes Mellitus Type 1, Diabetes Mellitus Type 2, Internal Pacemaker, MRSA, Seizures *Have you ever received a pneumonia vaccine?: Yes *Have you received a flu vaccine this season?: Yes Other Medical History: Denies: Blood Transfusion Reaction Other Surgeries: Yes: Cancer Surgery, Cardiac Catheterization, Cholecystectomy, Coronary Stent, Other. No: Pacemaker Amputation: No Fractures: No - *Social History Smoking Status: Never smoker Alcohol Intake: current Alcohol Intake Frequency:: holidays/special occasions only Substance Use Type: denies use *Occupational Status:: retired Housing: house Household Members: spouse *Travel in the last 8 weeks: None Family Hx:: Cancer, Diabetes, Hypertension Meds Home Medications Medication Instructions Recorded Confirmed Type Cetirizine HCl 10 mg PO DAILY 11/03/17 11/23/21 History Aspirin [Low Dose Aspirin EC] 81 mg PO DAILY
--- NOTE | 2021-11-24 10:45 | PC.NURSE ---
I assumed care of the patient at this time
--- NOTE | 2021-11-24 15:50 | PC.NURSE ---
Pt is alert and oriented x4. He's been 2L NC and tolerating well. O2 sats have measured > 95%. He's been NSR w/st depression. He is a standby assist. Appetite is OK. He says he usually only eats 1 meal a day and he gets too much food here. He's denied any complaints thus far. Bed is locked and in the lowest position, call light is within reach.
[2021-11-25] VITALS (9 sets, daily range): BP systolic 108–141; BP diastolic 42–89; PULSE 69–90; RESP 16–20; TEMP 36.4–37.1; O2SAT 93–99; BMI 27.3
--- NOTE | 2021-11-25 03:47 | PC.NURSE ---
spoke with Dr. Rey at this time. Received orders to increase metoprolol tartrate to 50 mg PO BID, and to increase lisinopril to 10 mg PO BID. Pharmacy communication order sent at this time. Life vest to be ordered for pt per dr rey.
--- NOTE | 2021-11-25 05:05 | PC.NURSE ---
Addendum entered by Rayne Wong RN 11/25/21 05:10: telemetry reads NSR with inverted T waves. Original Note: pt has rested well this shift. he has ambulated to the bathroom independently. he remains on 2L NC with O2 sats 95%. he has not c/o cp or soa this shift. Right radial cath site dressing CDI. SBP has been 111-155. HR has been 77-90.
[2021-11-25 06:34] LABS: Basophils % 0.2 % (0.1-2.0); Eosinophils # 0.3 K/mm3 (0.0-0.4); Hematocrit 34.4 % (42.0-52.0); Hemoglobin 11.1 g/dL (14.1-18.0); Lymphocytes # 2.2 K/mm3 (0.7-4.5); Lymphocytes % 17.4 % (10-50); Mean Corpuscular HGB Conc 32.3 g/dL (31.8-35.4); Mean Corpuscular Hemoglobin 32.2 pg (27.0-31.2); Mean Corpuscular Volume 99.8 fl (80-94); Monocytes # 1.2 K/mm3 (0.1-1.0); Monocytes % 9.3 % (1.7-9.3); Neutrophils # 9.1 K/mm3 (1.8-7.8); Neutrophils % 71.1 % (37.0-80.0); Platelet Count 228 K/mm3 (142-424); Red Blood Count 3.44 M/mm3 (4.60-6.20); Red Cell Distribution Width 12.7 % (11.5-17.5); White Blood Count 12.7 K/mm3 (4.8-10.8)
[2021-11-25 06:59] LABS: Anion Gap 8.6 mEq/L (5-15); Blood Urea Nitrogen 36 mg/dl (9-20); Calcium 8.9 mg/dl (8.4-10.2); Carbon Dioxide 27 mmol/L (22.0-30.0); Chloride 108 mmol/L (98-107); Creatinine Clearance Estimated 34 mL/min (50-200); Estimated Glomerular Filt Rate 34 ml/min (>60); GFR (African American) 41 ML/MIN (>60); Glucose 102 mg/dl (74-100); Potassium 4.6 mmoL/L (3.5-5.1); Sodium 139 mmol/L (136-145)
--- NOTE | 2021-11-25 09:03 | HMH.ACPN2 ---
Internal Medicine - PN: Subj *Date: 11/25/21 *Time: 09:03 Interval history: Patient with no new complaints today. Exam Vital signs and Labs for Last 24 Hours: Temp Pulse Resp BP Pulse Ox 98.6 F 87 18 141/89 H 93 L 11/25/21 08:00 11/25/21 08:00 11/25/21 08:00 11/25/21 08:00 11/25/21 08:00 Laboratory Results - last 24 hr 11/25/21 06:20: WBC 12.7 H, RBC 3.44 L, Hgb 11.1 L, Hct 34.4 L, MCV 99.8 H, MCH 32.2 H, MCHC 32.3, RDW 12.7, Plt Count 228, MPV 8.0, Neut % (Auto) 71.1, Lymph % (Auto) 17.4, [place] % (Auto) 9.3, Eos % (Auto) 2.0, Baso % (Auto) 0.2, Neut # (Auto) 9.1 H, Lymph # (Auto) 2.2, [place] # (Auto) 1.2 H, Eos # (Auto) 0.3, Baso # (Auto) 0.0 11/25/21 06:20: Sodium 139, Potassium 4.6, Chloride 108 H, Carbon Dioxide 27, Anion Gap 8.6, BUN 36 H D, Creatinine 1.90 H, Estimated Creat Clear 34, Estimated GFR 34 L, Est GFR ( Amer) 41 L, Glucose 102 H, Calcium 8.9 Vital Signs - 24 hr 11/24/21 12:00 11/24/21 16:00 11/24/21 20:00 Temperature 98.7 F 97.9 F 98 F Pulse Rate 69 80 90 Pulse Rate [Left Radial] 79 78 81 Respiratory Rate 20 33 H 16 Blood Pressure [Left Arm] 126/78 139/75 155/71 H 02 Sat by Pulse Oximetry 99 90 L 91 L 11/24/21 23:54 11/25/21 00:00 11/25/21 04:00 Temperature 97.9 F 97.9 F Pulse Rate 90 Pulse Rate [Left Radial] 86 77 Respiratory Rate 16 16 Blood Pressure [Left Arm] 144/65 H 111/58 L 02 Sat by Pulse Oximetry 95 11/25/21 08:00 Temperature 98.6 F Pulse Rate Pulse Rate [Left Radial] 87 Respiratory Rate 18 Blood Pressure [Left Arm] 141/89 H 02 Sat by Pulse Oximetry 93 L I & O for Last 24 hours: Intake & Output 11/22/21 11/23/21 11/24/21 11/25/21 23:59 23:59 23:59 23:59 Intake Total 1213 / 1213 951 / 951 Output Total 960 / 960 Balance 253 / 253 951 / 951 Weight 177 lb 176 lb 5.917 oz 174 lb 8 oz Narrative: Echo shows EF of 30% with systolic and diastolic heart failure - Constitutional no acute distress - *Routine HEENT Exam Head: Present: normocephalic Eye: Present: EOMI, PERRL ENT: Present: mucous membranes moist - *Routine Neck Exam Present: supple. Absent: lymphadenopathy - *Routine Respiratory Exam Present: CTA bilaterally - *Routine Cardiovascular Exam Present: RRR - *Routine Abdominal Exam Present: soft, normoactive bowel sounds. Absent: tenderness - *Routine Extremities Exam Absent: cyanosis, clubbing, edema - *Routine Skin Exam Present: warm, ecchymosis (on arms) - *Routine Neurological Exam Present: alert, oriented X3 Assessment and Plan (1) NSTEMI (non-ST elevated myocardial infarction) Status: Acute Category: Medical Code(s): I21.4 - Non-ST elevation (NSTEMI) myocardial infarction (2) Hypertension Status: Chronic Category: Medical Code(s): I10 - Essential (primary) hypertension (3) Acute kidney injury Status: Acute Category: Medical Code(s): N17.9 - Acute kidney failure, unspecified (4) Chest pain Status: Acute Category: Medical Code(s): R07.9 - Chest pain, unspecified (5) Stented coronary artery Status: Acute Category: Surgical Code(s): Z95.5 - Presence of coronary angioplasty implant and graft (6) CHF (congestive heart failure) Status: Acute Qualifiers: 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 Echo shows EF of 30% with evidence of systolic and diastolic CHF. Will stop Lisinopril and start Entresto tomorrow morning. Patient will need a Lifevest and nutrition consult for new onset CHF.
--- NOTE | 2021-11-25 09:45 | DIET.NUTRFU ---
Consult received for diet education for new onset CHF. Pt has been provided cardiac education during admission but will follow up to answer any questions and provide additional education if beneficial. Heart healthy and low sodium diet education have been added to discharge information. PO intake 75-100% for all meals.
--- NOTE | 2021-11-25 18:34 | PC.NURSE ---
pt has done well this shift. has denies any pain. ambulated with SBA. Cath site is c/d/i. @ bedside.
--- NOTE | 2021-11-25 19:50 | PC.NURSE ---
pt o2 sat 99% on 1L NC. O2 turned off. pt on RA at this time
[2021-11-26] VITALS (7 sets, daily range): BP systolic 95–134; BP diastolic 50–70; PULSE 60–89; RESP 16–20; TEMP 36.7–37.2; O2SAT 94–98; BMI 27.7
--- NOTE | 2021-11-26 04:43 | PC.NURSE ---
pt remains on RA with o2 sats 95-96%. no c/o cp or soa this shift. he has been up to the bathroom independently t/o the night, and showered this shift. call light within reach. no needs at this time.
[2021-11-26 07:20] LABS: Basophils % 0.3 % (0.1-2.0); Eosinophils # 0.4 K/mm3 (0.0-0.4); Hematocrit 32.8 % (42.0-52.0); Hemoglobin 11.2 g/dL (14.1-18.0); Lymphocytes # 2.1 K/mm3 (0.7-4.5); Lymphocytes % 18.2 % (10-50); Mean Corpuscular HGB Conc 34.1 g/dL (31.8-35.4); Mean Corpuscular Hemoglobin 32.9 pg (27.0-31.2); Mean Corpuscular Volume 96.6 fl (80-94); Mean Platelet Volume 8.2 fl (7.4-10.4); Neutrophils % 69.4 % (37.0-80.0); Platelet Count 236 K/mm3 (142-424); Red Cell Distribution Width 12.6 % (11.5-17.5); White Blood Count 11.6 K/mm3 (4.8-10.8)
[2021-11-26 07:37] LABS: Anion Gap 9.3 mEq/L (5-15); Blood Urea Nitrogen 35 mg/dl (9-20); Calcium 8.9 mg/dl (8.4-10.2); Carbon Dioxide 25 mmol/L (22.0-30.0); Chloride 110 mmol/L (98-107); Creatinine Clearance Estimated 37 mL/min (50-200); Estimated Glomerular Filt Rate 36 ml/min (>60); GFR (African American) 44 ML/MIN (>60); Glucose 103 mg/dl (74-100); Potassium 4.3 mmoL/L (3.5-5.1); Sodium 140 mmol/L (136-145)
--- NOTE | 2021-11-26 09:24 | HMH.ACPN2 ---
Internal Medicine - PN: Subj *Date: 11/26/21 *Time: 09:24 Interval history: Patient with no new complaints this morning. Exam Vital signs and Labs for Last 24 Hours: Temp Pulse Resp BP Pulse Ox 98.1 F 83 18 127/54 L 94 L 11/26/21 08:00 11/26/21 08:00 11/26/21 08:00 11/26/21 08:00 11/26/21 08:00 Laboratory Results - last 24 hr 11/26/21 06:52: WBC 11.6 H, RBC 3.40 L, Hgb 11.2 L, Hct 32.8 L, MCV 96.6 H, MCH 32.9 H, MCHC 34.1, RDW 12.6, Plt Count 236, MPV 8.2, Neut % (Auto) 69.4, Lymph % (Auto) 18.2, [place] % (Auto) 9.0, Eos % (Auto) 3.0, Baso % (Auto) 0.3, Neut # (Auto) 8.0 H, Lymph # (Auto) 2.1, [place] # (Auto) 1.0, Eos # (Auto) 0.4, Baso # (Auto) 0.0 11/26/21 06:52: Sodium 140, Potassium 4.3, Chloride 110 H, Carbon Dioxide 25, Anion Gap 9.3, BUN 35 H, Creatinine 1.80 H, Estimated Creat Clear 37, Estimated GFR 36 L, Est GFR ( Amer) 44 L, Glucose 103 H, Calcium 8.9 Vital Signs - 24 hr 11/25/21 12:00 11/25/21 15:32 11/25/21 16:01 Temperature 97.6 F 98.0 F Pulse Rate 70 70 Pulse Rate [Left Radial] 69 80 Respiratory Rate 19 16 Blood Pressure [Left Arm] 129/54 L 108/42 L 02 Sat by Pulse Oximetry 98 96 11/25/21 20:00 11/25/21 21:53 11/25/21 23:35 Temperature 98.8 F 98.7 F Pulse Rate 80 Pulse Rate [Left Radial] 80 76 Respiratory Rate 20 18 Blood Pressure [Left Arm] 135/47 L 126/57 L 110/65 02 Sat by Pulse Oximetry 99 96 11/26/21 00:00 11/26/21 04:00 11/26/21 08:00 Temperature 98.2 F 98.1 F Pulse Rate 60 75 Pulse Rate [Left Radial] 83 83 Respiratory Rate 18 18 Blood Pressure [Left Arm] 122/50 L 127/54 L 02 Sat by Pulse Oximetry 95 94 L I & O for Last 24 hours: Intake & Output 11/23/21 11/24/21 11/25/21 11/26/21 23:59 23:59 23:59 23:59 Intake Total 1213 / 1213 1551 / 1551 724 / 724 Output Total 960 / 960 Balance 253 / 253 1551 / 1551 724 / 724 Weight 177 lb 176 lb 5.917 oz 174 lb 8 oz 176 lb 14.4 oz - Constitutional no acute distress - *Routine HEENT Exam Head: Present: normocephalic Eye: Present: EOMI, PERRL ENT: Present: mucous membranes moist - *Routine Neck Exam Present: supple. Absent: lymphadenopathy - *Routine Respiratory Exam Present: CTA bilaterally - *Routine Cardiovascular Exam Present: RRR - *Routine Abdominal Exam Present: soft, normoactive bowel sounds. Absent: tenderness - *Routine Extremities Exam Absent: cyanosis, clubbing, edema - *Routine Skin Exam Present: warm - *Routine Neurological Exam Present: alert, oriented X3 Assessment and Plan (1) NSTEMI (non-ST elevated myocardial infarction) Status: Acute Category: Medical Code(s): I21.4 - Non-ST elevation (NSTEMI) myocardial infarction (2) Hypertension Status: Chronic Category: Medical Code(s): I10 - Essential (primary) hypertension (3) Acute kidney injury Status: Acute Category: Medical Code(s): N17.9 - Acute kidney failure, unspecified (4) Chest pain Status: Acute Category: Medical Code(s): R07.9 - Chest pain, unspecified (5) Stented coronary artery Status: Acute Category: Surgical Code(s): Z95.5 - Presence of coronary angioplasty implant and graft (6) CHF (congestive heart failure) Status: Acute Qualifiers: Heart failure type: combined systolic and diastolic Heart failure chronicity: acute Qualified Code(s): I50.41 - Acute combined systolic (congestive) and diastolic (congestive) heart failure Category: Medical Code(s): I50.9 - Heart failure, unspecified (7) Hypoxia Status: Acute Category: Medical Code(s): R09.02 - Hypoxemia - Assessment and plan all Dx Assessment and Plan for all problems:: Patient was able to wean off of supplemental oxygen overnight. Starting Entresto this morning. Plan for lifevest tomorrow. Saline lock IVF today.
--- NOTE | 2021-11-26 18:30 | PC.NURSE ---
No acute changes noted. VS stable and patient remained on room air. Patient eager for discharge tomorrow after obtaining lifevest. Right AC iv taken out per request from Dr. Barahona as pt stated the site was painful to him. Fluids d/c'd per md. Patient walked the halls twice today with no difficulty. No other complaints noted.
[2021-11-27] VITALS: BP 133/75; PULSE 69; PULSE 70; RESP 20; TEMP 36.7; O2SAT 96
[2021-11-27 04:00] VITALS: BP 113/42; PULSE 53; PULSE 70; RESP 18; TEMP 36.7; O2SAT 97
[2021-11-27 05:00] VITALS: BMI 19.8
--- NOTE | 2021-11-27 07:53 | P.PN_ITS ---
Subjective Date: 11/27/21 Time: 07:53 Principal diagnosis: NSTEMI Interval history: 81-year-old white male sitting in bedside chair in no acute distress. Denies any further chest pain over the weekend. Anxious to go home. Patient received multiple stents to the left main/LAD/circumflex/OM areas. EF 30% on echo. LifeVest has been ordered this morning. Exam Vital signs and Labs for Last 24 Hours: Temp Pulse Resp BP Pulse Ox 98.0 F 53 L 18 113/42 L 97 11/27/21 04:00 11/27/21 04:00 11/27/21 04:00 11/27/21 04:00 11/27/21 04:00 I & O for Last 24 hours: Intake & Output 11/24/21 11/25/21 11/26/21 11/27/21 11:59 11:59 11:59 11:59 Intake Total 360 / 360 1804 / 1804 1324 / 1324 480 / 480 Output Total 960 / 960 Balance -600 / -600 1804 / 1804 1324 / 1324 480 / 480 Weight 176 lb 8 oz 174 lb 8 oz 176 lb 14.4 oz 126 lb 3.2 oz - Constitutional no acute distress - *Routine Respiratory Exam Present: CTA bilaterally - *Routine Cardiovascular Exam Present: RRR - *Routine Neurological Exam Present: alert, oriented X3 Progress Note: A&P (1) NSTEMI (non-ST elevated myocardial infarction) Status: Acute (2) Hypertension Status: Chronic (3) Acute kidney injury Status: Acute (4) Chest pain Status: Acute (5) Stented coronary artery Status: Acute (6) CHF (congestive heart failure) Status: Acute (7) Hypoxia Status: Acute (8) Ischemic cardiomyopathy Status: Acute Assessment and Plan for All Diagnoses:: 1. NSTEMI, status post multivessel stenting. Continues on aspirin and Brili nta. 2. Ischemic cardiomyopathy, patient has been started on metoprolol and Entresto. No clinical evidence of CHF. No diuretics at this time. 3. CKD, stage III, stable 4. Mild anemia LifeVest has been ordered. Insurance approval is pending. If approved today patient could be fitted for the vest and discharged later this evening.
[2021-11-27 08:00] VITALS: BP 140/63; PULSE 110; PULSE 91; RESP 16; TEMP 36.7; O2SAT 97
--- NOTE | 2021-11-27 08:16 | DIET.NUTRFU ---
RD provided and reviewed cardiac/2gmNa handouts. He does like multiple high sodium food choices like biscuits and gravy and Gatorade. He did say he would have to make some diet changes. He tradially does not add salt but does like A1 sauce and BBQ sauce. Provided contact information for any follow-up needed
--- NOTE | 2021-11-27 08:42 | HMH.ACPN2 ---
Internal Medicine - PN: Subj *Date: 11/27/21 *Time: 08:42 Interval history: Patient with no new complaints, anxious to go home. Exam Vital signs and Labs for Last 24 Hours: Temp Pulse Resp BP Pulse Ox 98.0 F 91 H 16 140/63 97 11/27/21 08:00 11/27/21 08:00 11/27/21 08:00 11/27/21 08:00 11/27/21 08:00 Vital Signs - 24 hr 11/26/21 11:45 11/26/21 12:00 11/26/21 16:00 Temperature 98.5 F 98.9 F Pulse Rate 89 70 Pulse Rate [Left Radial] 65 64 Respiratory Rate 16 16 Blood Pressure [Left Arm] 132/58 L 95/66 L 02 Sat by Pulse Oximetry 98 98 11/26/21 20:00 11/27/21 00:00 11/27/21 04:00 Temperature 98.4 F 98.1 F 98.0 F Pulse Rate 70 70 70 Pulse Rate [Left Radial] 72 69 53 L Respiratory Rate 20 20 18 Blood Pressure [Left Arm] 134/70 133/75 113/42 L 02 Sat by Pulse Oximetry 97 96 97 11/27/21 08:00 Temperature 98.0 F Pulse Rate Pulse Rate [Left Radial] 91 H Respiratory Rate 16 Blood Pressure [Left Arm] 140/63 02 Sat by Pulse Oximetry 97 I & O for Last 24 hours: Intake & Output 11/24/21 11/25/21 11/26/21 11/27/21 23:59 23:59 23:59 23:59 Intake Total 1213 / 1213 1551 / 1551 1204 / 1204 480 / 480 Output Total 960 / 960 Balance 253 / 253 1551 / 1551 1204 / 1204 480 / 480 Weight 176 lb 5.917 oz 174 lb 8 oz 176 lb 14.4 oz 126 lb 3.2 oz - Constitutional no acute distress - *Routine HEENT Exam Head: Present: normocephalic Eye: Present: EOMI, PERRL ENT: Present: mucous membranes moist - *Routine Neck Exam Present: supple. Absent: lymphadenopathy - *Routine Respiratory Exam Present: CTA bilaterally - *Routine Cardiovascular Exam Present: RRR - *Routine Abdominal Exam Present: soft, normoactive bowel sounds. Absent: tenderness - *Routine Extremities Exam Absent: cyanosis, clubbing, edema - *Routine Skin Exam Present: warm - *Routine Neurological Exam Present: alert, oriented X3 Assessment and Plan (1) NSTEMI (non-ST elevated myocardial infarction) Status: Acute Category: Medical Code(s): I21.4 - Non-ST elevation (NSTEMI) myocardial infarction (2) Hypertension Status: Chronic Category: Medical Code(s): I10 - Essential (primary) hypertension (3) Acute kidney injury Status: Acute Category: Medical Code(s): N17.9 - Acute kidney failure, unspecified (4) Chest pain Status: Acute Category: Medical Code(s): R07.9 - Chest pain, unspecified (5) Stented coronary artery Status: Acute Category: Surgical Code(s): Z95.5 - Presence of coronary angioplasty implant and graft (6) CHF (congestive heart failure) Status: Acute Qualifiers: Heart failure type: combined systolic and diastolic Heart failure chronicity: acute Qualified Code(s): I50.41 - Acute combined systolic (congestive) and diastolic (congestive) heart failure Category: Medical Code(s): I50.9 - Heart failure, unspecified (7) Hypoxia Status: Acute Category: Medical Code(s): R09.02 - Hypoxemia (8) Ischemic cardiomyopathy Status: Acute Category: Medical Code(s): I25.5 - Ischemic cardiomyopathy - Assessment and plan all Dx Assessment and Plan for all problems:: LiveVest to be placed today. Patient is ready to be discharged.
[2021-11-27 11:30] VITALS: BP 123/53; PULSE 73; RESP 20; TEMP 36.7; O2SAT 96
[2021-11-27 12:00] VITALS: PULSE 70
--- NOTE | 2021-11-27 13:28 | CA_ITS ---
APPROVED REPORT EXAM: Comprehensive 2D, Doppler, and color-flow Echocardiogram Financial Services Consultant: Ju Steiner RDCS Ht: 5 ft 6 in Wt: 180lbs BSA: 1.91 BP: 000/00 mmHg Indications: EF RECHECK Conclusion 1. Limited echocardiogram was performed to evaluate left ventricular systolic function. Left ventricle is normal size mild concentric left ventricular hypertrophy, estimated ejection fraction 40%, there is marked hypokinesis involving mid to distal septum and anterior apical wall. 2. No significant pericardial effusion noted. Electronically signed by : Lonnie Adams MD 11/27/2021 20:19:37
--- NOTE | 2021-11-27 15:59 | HMH.PHACLD ---
Valdemar Shields has received discharge medication counseling on the following medications: -ASPIRIN (ON PREVIOUSLY, INCREASE IN BLEED/BRUISE RISK WITH BRILINTA) -BRILINTA (BLOOD THINNER, TWICE DAILY, BLEED/BRUISE RISK/APPEARANCE, BUMP HEAD = VISIT ER) -ENTRESTO (FOR BLOOD PRESSURE, TWICE DAILY, DIZZINESS/LIGHTHEADEDNESS POSSIBLE, MAY INCREASE POTASSIUM LEVELS) -METOPROLOL (FOR BLOOD PRESSURE, TWICE DAILY, DIZZINESS/LIGHTHEADEDNESS, HEADACHE, SLOWED HEART RATE POSSIBLE) -ROSUVASTATIN (FOR CHOLESTEROL, TAKE DAILY, WATCH FOR MUSCLE PAIN/WEAKNESS) -STOP TAKING THE LISINOPRIL PATIENT ENDORSED NO QUESTIONS AT THIS TIME.
--- NOTE | 2021-11-27 21:42 | HMH.DCSUM ---
General - General Admission date:: 11/23/21 Discharge date: 11/27/21 HPI HPI: 81-year-old male presented to the emergency department with some nonspecific subacute chest discomfort. Patient's pain resolved with nitroglycerin. Concern for angina versus NSTEMI. Work-up initiated. On reevaluation, the patient denies any chest discomfort. Is a very slightly elevated troponin. Given his chronic history of chest pain, EKG changes and elevated troponin I do believe he requires admission to the hospital. Cardiology was notified. Patient be admitted for further evaluation and treatment. (above as per ER physician) Patient states for the last 3 weeks he has been having what he thought was GERD. He states he had left-sided chest pain that radiated down his left arm and up into his jaw with any exertion. He also would get diaphoretic and short of breath. He stated his symptoms would resolve with rest. Last night they started and did not stop. He therefore went to the emergency room today. Hospital Course Hospital Course: The patient was admitted and his chest x-ray showed mild atelectasis in the lung bases. Cardiology was consulted. His troponin was elevated at 0.16 initially and increased to 3.05. He was taken directly to the Photographer Assistant and had successful stenting of the entire left main artery, successful stenting of a critical ostial LAD, and successful stenting of a critical ostial proximal circumflex artery. There was persistent severe calcified stenosis throughout the dominant right coronary. The patient was started on Brilinta and aspirin. Cardiology did not feel there would be successful results trying to revascularize the dominant right coronary artery. The patient's creatinine was elevated and he received a lot of contrast. Cardiology recommended IV fluids and monitoring for at least 48 hours. By the next morning, he felt much better and had no further chest pain. He did have his chest CTA showing a right upper lobe and right lower lobe interstitial infiltrates and peribronchial thickening on the right greater than the left. There was no PE. His echo showed an EF of 30% with grade 1 diastolic dysfunction. The patient continued to be hypoxic. His lisinopril was discontinued and he was started on Entresto. It was felt he would need a LifeVest for new onset CHF. His oxygen was weaned and he was saline locked. He was anxious to go home. His renal function remained elevated but stable. He did receive a LifeVest and was stable to be discharged home. He had a limited echo before discharge showing an EF of 40% and marked hypokinesis involving the mid to distal septum and anterior apical wall. He will follow-up with cardiology. Objective Vital signs: Temp Pulse Resp BP Pulse Ox 98.0 F 70 20 123/53 L 96 11/27/21 11:30 11/27/21 12:00 11/27/21 11:30 11/27/21 11:30 11/27/21 11:30 Narrative: - Constitutional no acute distress [facility] 17:05> - *Routine HEENT Exam Head: Present: normocephalic <[facility] 11/23/21 17:05> Eye: Present: EOMI, PERRL [facility] 11/23/[facility] 17:05> ENT: Present: mucous membranes moist [facility] 11/23/21 17:05> - *Routine Neck Exam Present: supple. Absent: lymphadenopathy <[facility] 11/23/21 17:05> - *Routine Respiratory Exam Present: CTA bilaterally <[facility] 11/23/21 17:05> - *Routine Cardiovascular Exam Present: RRR <[facility] 11/23/21 17:05> - *Routine Abdominal Exam Present: soft, normoactive bowel sounds. Absent: tenderness <[facility] 11/23/21 17:05> - *Routine Rectal Exam Rectal:: deferred <[facility] 11/23/21 17:05> - *Routine Genitalia Exam Genitalia:: deferred <[facility] 11/23/21 17:05> - *Routine Extremities Exam Absent: cyanosis, clubbing, edema <[facility] 11/23/21 17:05> - *Routine Skin Exam Present: warm. Absent: rash <[facility] 11/23/21
--- NOTE | 2021-11-28 16:47 | CARE MANAGER ---
Spoke with patient's regarding cost of Brilinta. I offered to provide her with the coupon if she wanted to stop by the hospital, but she requested phone number to her to call for cost savings. I told her if she did not have luck with calling that number to call back or stop by and we would provide her with the physical coupon. Deny any other questions or concerns. GEORGI Lakhani
== END 2021-11-27 16:20 | disposition home or self-care (01) | DRG 246 ==
LOC: ER 16:14 → 2ND 16:54
PROVIDERS: Internal Medicine; Admitting Provider Family Medicine; Emergency Provider Emergency Medicine; PCP Nurse Practitioner; Visit Provider Family Medicine
PROC: 027337Z Dilation of Coronary Artery, Four or More Arteries with Four or More Drug-eluting Intraluminal Devices, Percutaneous Approach (ICD-10-PCS; principal; 2021-11-23 21:00)
DX: I21.4 Non-ST elevation (NSTEMI) myocardial infarction (principal); I50.43 Acute on chronic combined systolic (congestive) and diastolic (congestive) heart failure; I13.0 Hypertensive heart and chronic kidney disease with heart failure and stage 1 through stage 4 chronic kidney disease, or unspecified chronic kidney disease; N17.9 Acute kidney failure, unspecified; Z85.828 Personal history of other malignant neoplasm of skin; K21.9 Gastro-esophageal reflux disease without esophagitis; Z95.5 Presence of coronary angioplasty implant and graft; I25.10 Atherosclerotic heart disease of native coronary artery without angina pectoris; N18.30 Chronic kidney disease, stage 3 unspecified; D63.1 Anemia in chronic kidney disease; I25.5 Ischemic cardiomyopathy
CPT/HCPCS: 93454; C9606; C9600 ×2; C9601; 36415; 71046; 71275; 80048; 83880; 84484; 85007; 85025; 85347; 85610; 85730; 92928; 92929; 92941; 93005; 93306; 93308; 99152; 99153; 99285; C1725; C1769; C1876; C9803; J1644; Q9957; Q9967; U0003; U0005

== ENCOUNTER → 2021-11-30 09:46 | Outpatient (CLI) | payer MEDICARE, SELFPAY ==
--- NOTE | 2021-11-30 09:51 | XR_ITS ---
FINAL REPORT CLINICAL HISTORY: cough, CHF COMPARISON: November 23, 2021 FINDINGS: PA and lateral views of the chest were obtained. The cardiac and mediastinal silhouettes are within normal limits. There is emphysema and evidence of prior granulomatous disease. The lungs are otherwise clear. There is no pleural effusion or pneumothorax. No acute osseous abnormality is identified. IMPRESSION: Emphysema and evidence of prior granulomatous disease. Reviewed, Interpreted and Dictated by Pau Kirby MD Transcribed by Rossy Carver Authenticated and [facility]
[2021-11-30 10:42] LABS: Basophils # 0.1 K/mm3 (0-0.2); Basophils % 0.6 % (0.1-2.0); Eosinophils # 0.4 K/mm3 (0.0-0.4); Eosinophils % 3.4 % (0.1-12.0); Hematocrit 38.1 % (42.0-52.0); Hemoglobin 11.8 g/dL (14.1-18.0); Lymphocytes % 16.9 % (10-50); Mean Corpuscular Volume 103.5 fl (80-94); Mean Platelet Volume 8.5 fl (7.4-10.4); Monocytes % 8.6 % (1.7-9.3); Neutrophils # 8.1 K/mm3 (1.8-7.8); Neutrophils % 70.6 % (37.0-80.0); Platelet Count 340 K/mm3 (142-424); Red Blood Count 3.68 M/mm3 (4.60-6.20); Red Cell Distribution Width 12.8 % (11.5-17.5); White Blood Count 11.5 K/mm3 (4.8-10.8)
[2021-11-30 11:34] LABS: Chloride 107 mmol/L (98-107); Potassium 5.3 mmoL/L (3.5-5.1); Sodium 140 mmol/L (136-145)
[2021-11-30 11:36] LABS: Blood Urea Nitrogen 42 mg/dl (9-20); Estimated Glomerular Filt Rate 36 ml/min (>60); GFR (African American) 44 ML/MIN (>60)
[2021-11-30 11:37] LABS: Alanine Aminotransferase 40 U/L (12-78); Albumin/Globulin Ratio 1.3 (1.1-1.8); Alkaline Phosphatase 103 U/L (38-126); Anion Gap 13.3 mEq/L (5-15); Aspartate Amino Transferase 41 U/L (17-59); Bilirubin,Total 0.3 mg/dl (0.2-1.3); Calcium 9.8 mg/dl (8.4-10.2); Carbon Dioxide 25 mmol/L (22.0-30.0); Globulin 3.1 g/dL (1.3-3.2); Glucose 116 mg/dl (74-100); Total Protein,Serum 7.1 g/dl (6.3-8.2)
[2021-11-30 11:47] LABS: NT Pro Brain Natriuretic Pep. 1460 pg/mL (0-450)
== END ==
PROVIDERS: PCP Nurse Practitioner; Visit Provider Nurse Practitioner
DX: I50.41 Acute combined systolic (congestive) and diastolic (congestive) heart failure (principal); R05.9 Cough, unspecified; Z95.5 Presence of coronary angioplasty implant and graft; Z20.822 Contact with and (suspected) exposure to COVID-19
CPT/HCPCS: 36415; 71046; 80053; 83880; 85025; C9803; U0003; U0005

== ENCOUNTER → 2021-12-04 11:02 | Outpatient (CLI) | payer MEDICARE, SELFPAY ==
--- NOTE | 2021-12-04 11:04 | CA_ITS ---
FINAL REPORT TECHNIQUE: Color Doppler, duplex Doppler and alvarez scale sonography of the bilateral neck vasculature was performed. Velocities were measured in the carotid arteries. Stenosis evaluation based on velocity criteria. CLINICAL HISTORY: CONRAD,BRUIT,HTN,CAD COMPARISON: 06/05/2019 FINDINGS: The peak systolic velocity of the right common carotid artery is 119 cm/sec and internal carotid artery 300 cm/sec. The diastolic velocity in the internal carotid artery is 107 cm/sec. Visually, a large amount of plaque is seen. These findings are consistent with 70-99% stenosis. The external carotid artery is patent. The right vertebral artery is patent with antegrade flow. The peak systolic velocity of the left common carotid artery is 116 cm/sec and internal carotid artery 241 cm/sec. The diastolic velocity in the internal carotid artery is 74 cm/sec. Visually, a moderate amount of plaque is seen. These findings are consistent with 70-99% stenosis. The external carotid artery is patent. The left vertebral artery is patent with antegrade flow. IMPRESSION: Elevated velocities in both internal carotid arteries, progressed since the prior exam. CT angiogram or catheter angiogram is recommended for further evaluation. Reviewed, Interpreted and Dictated by Gumaro Good III, MD Transcribed by Francisca Mattson Authenticated and [facility]
== END ==
PROVIDERS: PCP Nurse Practitioner; Visit Provider Physician Assistant
DX: E78.5 Hyperlipidemia, unspecified (principal); I10 Essential (primary) hypertension; I25.10 Atherosclerotic heart disease of native coronary artery without angina pectoris; I25.5 Ischemic cardiomyopathy; R42 Dizziness and giddiness; Z95.5 Presence of coronary angioplasty implant and graft; I65.23 Occlusion and stenosis of bilateral carotid arteries
CPT/HCPCS: 93880

== ENCOUNTER 2021-12-21 07:48 | Day surgery (SDC) | payer MEDICARE, SELFPAY ==
[2021-12-21] VITALS (40 sets, daily range): BP systolic 124–206; BP diastolic 61–100; PULSE 74–103; RESP 16–20; TEMP 36.6–36.9; O2SAT 94–100; BMI 26.1; BMI 27.3
--- NOTE | 2021-12-21 07:06 | IR_ITS ---
APPROVED REPORT Patient Location: Outpatient PROCEDURES Right retrograde femoral angiogram Bare-metal stent deployment to the right external iliac artery Bilateral selective renal angiogram Drug-eluting stent deployment to the right renal artery Bare-metal stent deployment to the left renal artery INDICATION Peripheral artery disease, Right external iliac artery stenosis, Chronic renal failure creatinine 1.9, Renovascular hypertension, Renal artery stenosis SCAI INDICATION Clinical history gentleman originally scheduled for bilateral carotid angiography. The right femoral pulse was diminished with some difficulty in accessing the femoral artery. Upon sheath insertion there was a 16mm Larose stenotic gradient across the external iliac artery. An advantage wire was used to traverse the stenosis and therapeutic heparin was administered. A 5 Sammarinese sheath was exchanged for a 6 Sammarinese sheath. A 7 mm x 57 mm EV 3 stent was deployed at 12 adryan reducing the severe calcified stenosis to 0%. Immediately there was improvement in the Larose stenotic gradient with normalization. Because of patient's elevated creatinine and hypertension and already receiving 40 cc of contrast it was decided the renal artery should be evaluated especially with a creatinine of 1.9. JR4 was used to perform bilateral selective renal angiography which did demonstrate severe bilateral renal artery stenosis. A 6 Sammarinese JR4 catheter was placed in the left renal artery followed by a Choice PT extra-support wire. A 6 mm x 15 mm Herculink stent was deployed at 15 adryan reducing the severe stenosis to 0%. The JR4 catheter was placed back into the right renal artery followed by a Choice PT extra-support wire. A 4 mm x 12 mm resolute Granby stent was deployed in the ostium of the right renal artery and deployed at 24 adryan. After achieving excellent angiographic results the apparatus was removed the patient was transferred to the postop putting in stable condition for sheath removal. Renal angiography was going to be performed at a later time due to the contrast load Because patient had moderate to severe carotid artery stenosis I felt the treatment of his hypertension with bilateral renal artery stenting was more important than proceeding with carotid artery disease. Informed consent was obtained prior to the procedure. COMPLICATIONS None Estimated Blood Loss: Less than 10 mls TECHNIQUE One percent lidocaine was used to anesthetize the right groin. The right femoral artery was accessed via the Seldinger technique. A 4-Sammarinese sheath was placed in the right femoral artery. Clinical history gentleman originally scheduled for bilateral carotid angiography. The right femoral pulse was diminished with some difficulty in accessing the femoral artery. Upon sheath insertion there was a 16mm Larose stenotic gradient across the external iliac artery. An advantage wire was used to traverse the stenosis and therapeutic heparin was administered. A 5 Sammarinese sheath was exchanged for a 6 Sammarinese sheath. A 7 mm x 57 mm EV 3 stent was deployed at 12 adryan reducing the severe calcified stenosis to 0%. Immediately there was improvement in the Larose stenotic gradient with normalization. Because of patient's elevated creatinine and hypertension and already receiving 40 cc of contrast it was decided the renal artery should be evaluated especially with a creatinine of 1.9. JR4 was used to perform bilateral selective renal angiography which did demonstrate severe bilateral renal artery stenosis. A 6 Sammarinese JR4 catheter was placed in the left renal artery followed by a Choice PT extra-support wire. A 6 mm x 15 mm Herculink stent was deployed at 15 adryan reducing the severe stenosis
[2021-12-21 08:07] LABS: Coronavirus 19, PCR Not Detected (NotDetected); Influenza A, PCR Not Detected (NotDetected); Influenza B, PCR Not Detected (NotDetected)
[2021-12-21 08:24] LABS: Basophils # 0.2 K/mm3 (0-0.2); Basophils % 2.1 % (0.1-2.0); Eosinophils # 0.4 K/mm3 (0.0-0.4); Eosinophils % 4.5 % (0.1-12.0); Hematocrit 38.4 % (42.0-52.0); Hemoglobin 12.1 g/dL (14.1-18.0); Lymphocytes # 2.3 K/mm3 (0.7-4.5); Lymphocytes % 23.8 % (10-50); Mean Corpuscular HGB Conc 31.5 g/dL (31.8-35.4); Mean Corpuscular Volume 101.5 fl (80-94); Mean Platelet Volume 7.7 fl (7.4-10.4); Monocytes # 0.7 K/mm3 (0.1-1.0); Monocytes % 7.6 % (1.7-9.3); Neutrophils # 5.9 K/mm3 (1.8-7.8); Platelet Count 316 K/mm3 (142-424); Red Blood Count 3.78 M/mm3 (4.60-6.20); Red Cell Distribution Width 12.4 % (11.5-17.5); White Blood Count 9.6 K/mm3 (4.8-10.8)
[2021-12-21 08:32] LABS: Chloride 103 mmol/L (98-107)
[2021-12-21 08:33] LABS: Potassium 4.7 mmoL/L (3.5-5.1); Sodium 141 mmol/L (136-145)
[2021-12-21 08:35] LABS: Blood Urea Nitrogen 37 mg/dl (9-20); Estimated Glomerular Filt Rate 34 ml/min (>60); GFR (African American) 41 ML/MIN (>60)
[2021-12-21 08:36] LABS: Anion Gap 9.7 mEq/L (5-15); Carbon Dioxide 33 mmol/L (22.0-30.0); Glucose 131 mg/dl (74-100)
[2021-12-21 12:54] LABS: CATHL Activated Clotting Time > 400 SEC (74-125)
--- NOTE | 2021-12-21 18:37 | PC.NURSE ---
No problems noted post cath. Dsg cdi to R gavin. CB in reach and VSS. No changes since prior assessment.
[2021-12-22] VITALS: BP 128/64; PULSE 100; PULSE 109; RESP 18; TEMP 36.8; O2SAT 95
[2021-12-22 04:00] VITALS: BP 128/52; PULSE 85; PULSE 93; RESP 17; TEMP 36.6; O2SAT 96
--- NOTE | 2021-12-22 04:00 | PC.NURSE ---
pt did not sleep well through the night, no complaints of pain, tylenol give for complaints of headache earlier in the evening, dressing to right groin cdi, VSS, telemetry reveals nsr to sinus tach, pt is alert and oriented x4, no edema, cap refill noted to BLE, BLE pink warm and dry, pt voiding without difficulty.
[2021-12-22 05:05] VITALS: BMI 27.8
[2021-12-22 06:00] VITALS: PULSE 85
[2021-12-22 06:41] LABS: Basophils % 0.3 % (0.1-2.0); Eosinophils # 0.5 K/mm3 (0.0-0.4); Eosinophils % 5.6 % (0.1-12.0); Hematocrit 38.2 % (42.0-52.0); Hemoglobin 12.2 g/dL (14.1-18.0); Lymphocytes # 0.8 K/mm3 (0.7-4.5); Lymphocytes % 8.9 % (10-50); Mean Corpuscular HGB Conc 31.9 g/dL (31.8-35.4); Mean Corpuscular Hemoglobin 32.5 pg (27.0-31.2); Mean Corpuscular Volume 101.9 fl (80-94); Mean Platelet Volume 8.2 fl (7.4-10.4); Monocytes # 0.6 K/mm3 (0.1-1.0); Monocytes % 6.4 % (1.7-9.3); Neutrophils # 7.5 K/mm3 (1.8-7.8); Neutrophils % 78.8 % (37.0-80.0); Platelet Count 267 K/mm3 (142-424); Red Blood Count 3.75 M/mm3 (4.60-6.20); Red Cell Distribution Width 12.6 % (11.5-17.5); White Blood Count 9.5 K/mm3 (4.8-10.8)
[2021-12-22 06:42] LABS: Alanine Aminotransferase 30 U/L (12-78); Albumin Level 3.8 g/dl (3.5-5.0); Alkaline Phosphatase 116 U/L (38-126); Aspartate Amino Transferase 32 U/L (17-59); Bilirubin,Direct 0.2 mg/dl (0.0-0.4); Bilirubin,Total 0.2 mg/dl (0.2-1.3); Chol/HDL Ratio 4.8 (1-3.5); Cholesterol 125 mg/dl (140-200); HDL Cholesterol 26 mg/dl (40-60); Triglycerides 154 mg/dl (30-150); VLDL Cholesterol 31 mg/dL (0-40)
[2021-12-22 07:26] LABS: Chloride 104 mmol/L (98-107); Potassium 4.3 mmoL/L (3.5-5.1); Sodium 138 mmol/L (136-145)
[2021-12-22 07:28] LABS: Blood Urea Nitrogen 34 mg/dl (9-20); Creatinine Clearance Estimated 36 mL/min (50-200); Estimated Glomerular Filt Rate 36 ml/min (>60); GFR (African American) 44 ML/MIN (>60)
[2021-12-22 07:29] LABS: Anion Gap 8.3 mEq/L (5-15); Calcium 9.4 mg/dl (8.4-10.2); Carbon Dioxide 30 mmol/L (22.0-30.0); Glucose 122 mg/dl (74-100)
--- NOTE | 2021-12-22 07:37 | PC.NURSE ---
Spoke with Suzie. Told Dr jones ambulating HR vs sitting. He reordered his at home med.
[2021-12-22 08:00] VITALS: BP 131/70; PULSE 123; PULSE 130; PULSE 135; RESP 20; TEMP 37.3; O2SAT 98
--- NOTE | 2021-12-22 09:15 | HMH.PNCARD ---
Subjective Date: 12/22/21 Time: 08:30 Principal diagnosis: PAD, AMADOR Interval history: This is an 81-year-old white gentleman who came in as an outpatient to undergo carotid angiogram. However during the procedure the patient had severe stenosis to the right external iliac artery which required 1 bare-metal stent. He was also found to have severe bilateral renal artery stenosis and he had 1 stent placed to each renal artery. The right renal artery had 1 drug-eluting stent placed in the left renal artery had a bare-metal stent placed. The patient will be on Brilinta and aspirin for dual antiplatelet therapy. The procedure had to be stopped due to the large contrast load that was given for stenting of the right external iliac artery and the bilateral renal arteries. The patient will need to be brought back to the cardiac catheterization laboratory to undergo carotid angiogram in approximately 2 weeks. The patient was kept overnight for IV fluids due to the heavy contrast load to avoid contrast nephropathy. His creatinine is down to 1.8 today from 1.9. He did get tachycardic through the night last night because his metoprolol was not restarted. The patient has been given metoprolol this morning and his heart rate is down to the 110s and 120s, which is improved. He denies any chest pain or pressure. He denies any shortness of breath or edema. He denies any fever, chills, nausea, vomiting, diarrhea, PND or orthopnea. He denies any racing of the heart. The patient denies groin pain or tenderness. The patient states that he feels great and he is ready to go home. Lower extremity and renal angiogram shows: Right external iliac artery is calcified with 80% stenosis and a 60 mm Larose stenotic gradient Right renal artery is small heavily calcified with a 100 mm transient stenotic gradient using a 4 Maori JR4 catheter Left renal artery singular and has an ostial calcified 80% stenosis IMPRESSION Severe bilateral renal artery stenosis Successful stent to the bilateral renal artery severe disease reduced to 0% with 1 drug-eluting stent in the right renal artery and a bare-metal stent left renal artery Severe stenosis of the right external iliac artery Successful stent to the right external iliac artery severe disease reduced to 0% with 1 bare-metal stent PLAN 1. Continue dual antiplatelet therapy 2. Admitted overnight with IV fluids due to the heavy contrast load and to reduce the risk of contrast nephropathy 3. Chem-8 in the morning 4. Reschedule bilateral carotid artery angiography in 2 weeks from the right femoral artery 5. Continue with control of hypertension and hyperlipidemia Exam Vital signs and Labs for Last 24 Hours: Temp Pulse Resp BP Pulse Ox 97.9 F 85 17 128/52 L 96 12/22/21 04:00 12/22/21 06:00 12/22/21 04:00 12/22/21 04:00 12/22/21 04:00 Laboratory Results - last 24 hr 12/21/21 12:00: Activated Clotting Time > 400 H* 12/22/21 06:03: Total Bilirubin 0.2, Direct Bilirubin 0.2, Conjugated Bilirubin 0.0, Indirect Bilirubin 0.0, Unconjugated Bilirubin 0.0, AST 32, ALT 30, Alkaline Phosphatase 116, Total Protein 7.0, Albumin 3.8, Triglycerides 154 H, Cholesterol 125 L, VLDL Cholesterol 31, HDL Cholesterol 26 L, Cholesterol/HDL Ratio 4.8 H 12/22/21 06:03: WBC 9.5, RBC 3.75 L, Hgb 12.2 L, Hct 38.2 L, MCV 101.9 H, MCH 32.5 H, MCHC 31.9, RDW 12.6, Plt Count 267, MPV 8.2, Neut % (Auto) 78.8, Lymph % (Auto) 8.9 L, Loving % (Auto) 6.4, Eos % (Auto) 5.6, Baso % (Auto) 0.3, Neut # (Auto) 7.5, Lymph # (Auto) 0.8, Loving # (Auto) 0.6, Eos # (Auto) 0.5 H, Baso # (Auto) 0.0 12/22/21 06:03: Sodium 138, Potassium 4.3, Chloride 104, Carbon Dioxide 30, Anion Gap 8.3, BUN 34 H, Creatinine 1.80 H, Estimated Creat Clear 36, Estimated GFR 36 L, Est GFR ( Amer) 44 L, Glucose 122 H, Calcium 9.4 I & O for Last 24 hours: Intake & Output 12/19/21 12/20/21 12/21/21 12/22/21 23:59 23:59 23:59 23:59 Intake Total 120 / 120 667 / 667
[2021-12-22 09:37] VITALS: PULSE 83
--- NOTE | 2021-12-22 10:31 | PC.NURSE ---
Spoke with Bryanna Anand and she stated that pt was fine to D/C. His heart rates is 84 currently.
[2021-12-23 11:02] LABS: Direct LDL Cholesterol 60 mg/dL (100-129)
== END 2021-12-22 11:10 | disposition home or self-care (01) ==
LOC: CATHLAB 07:52 → 2ND 13:51
PROVIDERS: Nurse Practitioner Family; Physician Assistant; PCP Nurse Practitioner; Visit Provider Internal Medicine
DX: I77.1 Stricture of artery (principal); I70.291 Other atherosclerosis of native arteries of extremities, right leg; I11.0 Hypertensive heart disease with heart failure; I50.41 Acute combined systolic (congestive) and diastolic (congestive) heart failure; I65.23 Occlusion and stenosis of bilateral carotid arteries; N18.9 Chronic kidney disease, unspecified; I70.1 Atherosclerosis of renal artery; Z79.899 Other long term (current) drug therapy; Z88.8 Allergy status to other drugs, medicaments and biological substances; Z20.822 Contact with and (suspected) exposure to COVID-19
CPT/HCPCS: 36415; 37221; 37236; 37237; 80048; 80061; 80076; 85025; 85347; 99152; 99153; C1725; C1769; C1876; C1894; C9803; J1644; J2720; Q9967; U0003; U0005

== ENCOUNTER → 2022-01-02 09:56 | Outpatient (CLI) | payer MEDICARE, SELFPAY ==
--- NOTE | 2022-01-02 09:59 | CA_ITS ---
APPROVED REPORT EXAM: Comprehensive 2D, Doppler, and color-flow Echocardiogram Flight Service Agent: Criselda Bray CRT Ht: 5 ft 8 in Wt: 173lbs BSA: 1.92 BP: 131/65 mmHg Indications: ef check, Congestive Heart Failure, CAD, Hyperlipidemia, Cardiomyopathy 2D Dimensions LVOT 1.99 cm (M/F) 1.5-2.5 M-Mode Dimensions RVDd 2.98 cm (0.9-2.6) LA Diam 3.24 cm (1.9-4.0) LVDd 4.13 cm (3.5-5.7) Ao Diam 3.81 cm (2.0-3.7) LVDs 2.92 cm (3.5-5.7) IVSd 1.14 cm (0.6-1.1) PWd 0.94 cm (0.6-1.1) EF (Teich) 56.60% FS 29.30% EDV (Teich) 75.50 mL ESV (Teich) 32.80 mL Conclusion 1. Limited echocardiogram was performed to evaluate left ventricular systolic function, endocardial surfaces are poorly visualized, estimated ejection fraction 50% with no regional wall motion abnormality. 2. No significant pericardial effusion noted. Electronically signed by : Lonnie Adams MD 01/03/2022 07:06:54
== END ==
PROVIDERS: PCP Nurse Practitioner; Visit Provider Physician Assistant
DX: I25.5 Ischemic cardiomyopathy (principal)
CPT/HCPCS: 93308

== ENCOUNTER → 2022-02-19 14:05 | Outpatient (CLI) | payer MEDICARE, SELFPAY ==
--- NOTE | 2022-02-19 14:18 | XR_ITS ---
FINAL REPORT CLINICAL HISTORY: distention of abdomen, diarrhea FINDINGS: Chest: A single view of the chest demonstrates biapical pleural thickening. Abdomen: Flat and upright views of the abdomen demonstrate a nonobstructive bowel gas pattern. Postoperative changes are seen in the right abdomen. There is no free air. There are multiple presumed left renal stones measuring up to 11 mm in greatest dimensions. Vascular calcifications are present. There is severe degenerative change of the spine. Dextroscoliosis of the lumbar spine is noted. There are right femoral and iliac stents. IMPRESSION: Presumed left nephrolithiasis. Nonobstructive bowel gas pattern. Reviewed, Interpreted and Dictated by Gumaro Good III, MD Transcribed by Gabo Vanessa Authenticated and [facility]
== END ==
PROVIDERS: PCP Nurse Practitioner; Visit Provider Nurse Practitioner
DX: R14.0 Abdominal distension (gaseous) (principal); R19.7 Diarrhea, unspecified
CPT/HCPCS: 74021

== ENCOUNTER 2023-02-08 16:39 | Observation (INO) | payer MEDICARE, SELFPAY ==
[2023-02-08] VITALS (7 sets, daily range): BP systolic 122–148; BP diastolic 52–79; PULSE 64–110; RESP 16–18; TEMP 36.8–37.1; O2SAT 92–98; BMI 25.7; BMI 24.6
--- NOTE | 2023-02-08 16:42 | HMH.EDGENADL ---
Discharge Plan Disposition Patient Disposition: Admitted Condition: Good Discharge ED Provider: Junito Li General Adult HPI General Chief complaint: Abdominal Pain Stated complaint: blood in urine Time Seen by Provider: 02/08/23 16:42 History of Present Illness HPI narrative: The patient presents with a chief complaint of blood in their urine, which they first noticed upon waking up this morning. The urine has been green in color throughout the day. The patient denies any pain associated with urination and reports no recent changes in urinary habits. The patient has a history of similar episodes and is currently taking Plavix. They report feeling unwell overall but deny any new bruising, abdominal pain, or lightheadedness. The patient experienced back pain yesterday, but it has since resolved and is not present today. The patient has had multiple episodes of discolored urine today but has not experienced any side pain, which they associate with kidney stones. They have no history of kidney stones. Related Data Home Medications Medication Instructions Recorded Confirmed cetirizine 10 mg tablet 10 mg PO DAILY Allergy symptoms 11/03/17 02/08/23 aspirin 81 mg tablet,delayed 81 mg PO DAILY heart 12/30/17 02/08/23 release cyanocobalamin (vitamin B-12) 5,000 mcg PO DAILY Supplement 12/30/17 02/08/23 5,000 mcg disintegrating tablet magnesium oxide 400 mg PO DAILY Supplement 12/30/17 02/08/23 multivitamin 1 each PO DAILY Supplement 12/30/17 02/08/23 pantoprazole 40 mg tablet,delayed 40 mg PO HS acid reflux 11/24/21 02/08/23 release melatonin 10 mg capsule 10 mg PO HS PRN Sleep 12/04/21 02/08/23 omeprazole 40 mg capsule,delayed 40 mg PO DAILY 01/02/22 02/08/23 release Previous Rx's Medication Instructions Recorded ticagrelor 90 mg tablet 90 mg PO BID stent #180 tabs 05/14/22 furosemide 20 mg tablet See Rx Instructions .Route 12/17/22 .COMPLEX #90 tabs rosuvastatin 20 mg tablet See Rx Instructions .Route 12/17/22 .COMPLEX #30 tabs metoprolol tartrate 50 mg tablet See Rx Instructions .Route 01/01/23 .COMPLEX #60 tabs sacubitril 24 mg-valsartan 26 mg 1 tab PO BID chf #60 tabs 02/05/23 tablet Allergies Allergy/AdvReac Type Severity Reaction Status Date / Time clopidogrel [From PLAVIX] Allergy Unknown I-RASH Verified 02/19/22 13:14 sulfamethoxazole Allergy Unknown I-HIVES Verified 02/19/22 13:14 [From BACTRIM] trimethoprim [From BACTRIM] Allergy Unknown I-HIVES Verified 02/19/22 13:14 [facility] Disclaimer: The information contained in this section may have been updated after the patient was seen, as this information can be updated by other users. Medical History Bilateral carotid artery stenosis CHF (congestive heart failure) Coronary artery disease HLD (hyperlipidemia) Hypertension Ischemic cardiomyopathy NSTEMI (non-ST elevated myocardial infarction) PAD (peripheral artery disease) Renal artery stenosis Surgical History History of coronary artery stent placement Stented coronary artery Social History (Updated 02/08/23 @ 21:28 by Rishabh Mendoza RN) Smoking Status: Former smoker alcohol intake: never substance use type: denies use current occupational status: retired Travel in the last 8 weeks: Inside the [place] household members: spouse housing: house current occupational exposures/hazards: No caffeine: Yes ROS Obtained: Yes Systems reviewed as appropriate & no additional complaints except as documented As per HPI Physical Exam General General appearance: alert and in no apparent distress Head Head exam: atraumatic and normocephalic Eye Eye exam: Present normal appearance Neck Neck exam: Present normal inspection Chest Chest inspection: Present normal inspection and symmetric chest wall rise Respiratory Respiratory exam: Present normal lung s
--- NOTE | 2023-02-08 17:07 | PC.NURSE ---
Blood drawn for labs via straight stick
[2023-02-08 17:25] LABS: Microscopic, Urine URINE MICROSCOPIC (MICROSCOPIC)
[2023-02-08 17:29] LABS: Appearance,Urine CLOUDY (Clear); Blood, Urine 3+ (Negative); Color,Urine BROWN (Yellow); Glucose,Urine (UA) Negative (Negative); Ketones,Urine TRACE (Negative); Leukocyte Esterase,Urine 3+ (Negative); Nitrate,Urine POSITIVE (Negative); PH,Urine 6.5 (5.0-8.5); Protein,Urine 3+ (Negative); Specific Gravity, Urine 1.025 (1.005-1.030)
--- NOTE | 2023-02-08 17:30 | PC.NURSE ---
Pt ambulatory to bathroom and back to bed. No other needs voiced. Call light within reach.
[2023-02-08 17:33] LABS: Bilirubin,Urine 3+ (Negative)
[2023-02-08 17:36] LABS: Basophils % 0.5 % (0.1-2.0); Eosinophils # 0.4 K/mm3 (0.0-0.4); Eosinophils % 5.4 % (0.1-12.0); Hematocrit 35.3 % (42.0-52.0); Hemoglobin 11.4 g/dL (14.1-18.0); Lymphocytes # 2.4 K/mm3 (0.7-4.5); Lymphocytes % 29.6 % (10-50); Mean Corpuscular HGB Conc 32.3 g/dL (31.8-35.4); Mean Corpuscular Hemoglobin 32.2 pg (27.0-31.2); Mean Corpuscular Volume 99.7 fl (80-94); Mean Platelet Volume 7.8 fl (7.4-10.4); Monocytes # 0.8 K/mm3 (0.1-1.0); Monocytes % 10.4 % (1.7-9.3); Neutrophils # 4.3 K/mm3 (1.8-7.8); Neutrophils % 54.1 % (37.0-80.0); Platelet Count 271 K/mm3 (142-424); Red Blood Count 3.54 M/mm3 (4.60-6.20); Red Cell Distribution Width 12.9 % (11.5-17.5)
[2023-02-08 17:43] LABS: Alanine Aminotransferase 27 U/L (12-78); Albumin Level 4.2 g/dl (3.5-5.0); Albumin/Globulin Ratio 1.1 (1.1-1.8); Alkaline Phosphatase 96 U/L (38-126); Anion Gap 12.1 mEq/L (5-15); Aspartate Amino Transferase 34 U/L (17-59); Bilirubin,Total 0.2 mg/dl (0.2-1.3); Blood Urea Nitrogen 48 mg/dl (9-20); Calcium 9.3 mg/dl (8.4-10.2); Carbon Dioxide 27 mmol/L (22.0-30.0); Chloride 104 mmol/L (98-107); Creatinine Clearance Estimated 26 mL/min (50-200); Estimated Glomerular Filt Rate 24 ml/min (>60); GFR (African American) 29 ML/MIN (>60); Globulin 3.9 g/dL (1.3-3.2); Glucose 107 mg/dl (74-100); Potassium 4.1 mmoL/L (3.5-5.1); Sodium 139 mmol/L (136-145); Total Protein,Serum 8.1 g/dl (6.3-8.2)
--- NOTE | 2023-02-08 17:43 | PC.NURSE ---
Dr. Li at BS for pt eval
[2023-02-08 17:45] LABS: Activated Partial Thrombo Time 27.7 seconds (22.8-30.6); INR 0.99 (0.9-1.1); Prothrombin Time 10.7 seconds (10.1-12.5)
--- NOTE | 2023-02-08 17:47 | CT_ITS ---
PROCEDURE INFORMATION: Exam: CT Abdomen And Pelvis Without Contrast Exam date and time: 02/08/2023 6:24 PM Age: 82 years old Clinical indication: Abdominal pain and other: Back; Flank; Lower; Additional info: Flank pain, hematuria, back pain TECHNIQUE: Imaging protocol: Computed tomography of the abdomen and pelvis without contrast. Radiation optimization: All CT scans at this facility use at least one of these dose optimization techniques: automated exposure control; mA and/or kV adjustment per patient size (includes targeted exams where dose is matched to clinical indication); or iterative reconstruction. REPORTING DATA: Count of CT and Cardiac NM exams in prior 12 months: This patient has received 0 known CTs and 0 known cardiac nuclear medicine studies in the 12 months prior to the current study. COMPARISON: CT ABDOMEN PELVIS W CON 12/10/2018 8:17 AM FINDINGS: Coronary arteries: Dense coronary artery calcifications. Liver: Normal. No mass. Gallbladder and bile ducts: Gallbladder is surgically absent. Pancreas: Normal. No ductal dilation. Spleen: Normal. No splenomegaly. Adrenal glands: Normal. No mass. Kidneys and ureters: Mild bilateral renal atrophy. 2.2 cm caliceal stone in the left kidney. No hydronephrosis. Stomach and bowel: There is moderate diverticulosis throughout the sigmoid colon. No bowel wall thickening or evidence of bowel obstruction. Appendix: No evidence of appendicitis. Intraperitoneal space: Unremarkable. No free air. No significant fluid collection. Vasculature: Dense atherosclerotic calcification of the aorta. No evidence of aneurysm. Lymph nodes: Unremarkable. No enlarged lymph nodes. Urinary bladder: Numerous small bladder diverticulum again noted. Reproductive: Unremarkable as visualized. Bones/joints: Severe multilevel degenerative disc changes throughout the lower spine. No vertebral body compression or acute fracture. Soft tissues: Unremarkable. IMPRESSION: No acute abnormality. Specifically, no evidence of obstructing urolithiasis or hydronephrosis. Stable chronic findings as noted.
[2023-02-08 18:01] LABS: Bacteria,Urine 1+ /lpf; RBC,Urine TNTC #/hpf (0-3)
[2023-02-08 18:32] LABS: Creatine Kinase 152 U/L (55-170)
--- NOTE | 2023-02-08 19:47 | PC.NURSE ---
pt is ready for re eval, ER made aware of CT report is back
--- NOTE | 2023-02-08 19:56 | PC.NURSE ---
ER on the phone with hospital medicine for admission
--- NOTE | 2023-02-08 20:27 | PC.NURSE ---
hospitalist at bedside
--- NOTE | 2023-02-08 20:32 | PC.NURSE ---
spoke with manager of warehouse for bed request
--- NOTE | 2023-02-08 20:33 | PC.NURSE ---
Called by ER for bed for hospitalist with TEJAL diagnosis. Charge nurse gave bed number 201.
--- NOTE | 2023-02-08 20:38 | EXP.HP ---
History of Present Illness *Admission Date: 02/08/23 *Reason for visit:: hematuria *History of present illness: This is a 82 yo male with PMHx CAD s/p stent placement on home Brillinta. CHF, HTN, HLD, bladder diverticulosis who came to ER for evaluation of gross hematuria, which they first noticed upon waking up this morning. The urine has been dark in color throughout the day. The patient denies any pain associated with urination and reports no recent changes in urinary habits. Admitted for treatment and management. [facility] Disclaimer: The information contained in this section may have been updated after the patient was seen, as this information can be updated by other users. Medical History Bilateral carotid artery stenosis CHF (congestive heart failure) Coronary artery disease HLD (hyperlipidemia) Hypertension Ischemic cardiomyopathy NSTEMI (non-ST elevated myocardial infarction) PAD (peripheral artery disease) Renal artery stenosis Surgical History History of coronary artery stent placement Stented coronary artery Social History (Updated 02/08/23 @ 21:28 by Rishabh Mendoza RN) Smoking Status: Former smoker alcohol intake: never substance use type: denies use current occupational status: retired Travel in the last 8 weeks: Inside the [place] household members: spouse housing: house current occupational exposures/hazards: No caffeine: Yes Review of Systems Review of Systems Review of systems:: pertinent systems reviewed and negative unless documented below Meds Home Medications and Allergies Home Medications Medication Instructions Recorded Confirmed Type cetirizine 10 mg tablet 10 mg PO DAILY Allergy symptoms 11/03/17 02/08/23 History aspirin 81 mg tablet,delayed 81 mg PO DAILY heart 12/30/17 02/08/23 History release cyanocobalamin (vitamin B-12) 5,000 mcg PO DAILY Supplement 12/30/17 02/08/23 History 5,000 mcg disintegrating tablet magnesium oxide 400 mg PO DAILY Supplement 12/30/17 02/08/23 History multivitamin 1 each PO DAILY Supplement 12/30/17 02/08/23 History pantoprazole 40 mg tablet,delayed 40 mg PO HS acid reflux 11/24/21 02/08/23 History release melatonin 10 mg capsule 10 mg PO HS PRN Sleep 12/04/21 02/08/23 History omeprazole 40 mg capsule,delayed 40 mg PO DAILY 01/02/22 02/08/23 History release furosemide 20 mg tablet See Rx Instructions .Route 12/17/22 02/08/23 Rx .COMPLEX #90 tabs rosuvastatin 20 mg tablet See Rx Instructions .Route 12/17/22 02/08/23 Rx .COMPLEX #30 tabs metoprolol tartrate 50 mg tablet See Rx Instructions .Route 01/01/23 02/08/23 Rx .COMPLEX #60 tabs sacubitril 24 mg-valsartan 26 mg 1 tab PO BID chf #60 tabs 02/05/23 02/08/23 Rx tablet levofloxacin 750 mg tablet 750 mg PO Q48H 6 days #3 tabs 02/09/23 Rx tamsulosin 0.4 mg capsule 0.4 mg PO HS 30 days #30 caps 02/09/23 Rx New Prescriptions to Start Prescriptions: levofloxacin Yeyo Lee tamsulosin Yeyo Lee Allergies Allergy/AdvReac Type Severity Reaction Status Date / Time clopidogrel [From PLAVIX] Allergy Unknown I-RASH Verified 02/19/22 13:14 sulfamethoxazole Allergy Unknown I-HIVES Verified 02/19/22 13:14 [From BACTRIM] trimethoprim [From BACTRIM] Allergy Unknown I-HIVES Verified 02/19/22 13:14 Exam Data for Last 24 hours Vital signs and Labs for Last 24 Hours: Temp Pulse Resp BP Pulse Ox O2 Del Method 98.7 F 78 18 148/70 H 96 Room Air 02/08/23 16:41 02/08/23 18:41 02/08/23 16:41 02/08/23 18:41 02/08/23 18:41 02/08/23 18:41 Laboratory Results - last 24 hr 02/08/23 16:49: Urine Color Brown, Urine Appearance Cloudy, Urine pH 6.5, Ur Specific Hodges 1.025, Urine Protein 3+, Urine Glucose (UA) Negative, Urine Ketones Trace, Urine Blood 3+, Urine Nitrate Positive, Urine Bilir
--- NOTE | 2023-02-08 20:42 | PC.NURSE ---
2034 RECEIVED PHONE REPORT FROM CHARLOTTE RN/ED NURSE. 82 YO MALE WITH UTI/HEMATURIA/TEJAL. TO TRANSFER VIA W/C.
--- NOTE | 2023-02-08 20:59 | PC.NURSE ---
Patient arrived to floor via wheelchair at 20:55.
--- NOTE | 2023-02-08 20:59 | PC.NURSE ---
PATIENT ARRIVED TO THE FLOOR AT 2054 VIA W/C ACCOMPANIED BY SPOUSE. ADMITTED TO ROOM 201.
[2023-02-09] VITALS: BP 122/55; PULSE 90; RESP 18; TEMP 36.9; O2SAT 93
[2023-02-09 04:00] VITALS: BP 133/66; PULSE 88; RESP 18; TEMP 36.8; O2SAT 99; BMI 24.6
--- NOTE | 2023-02-09 06:57 | PC.NURSE ---
Patient has gross hematuria in his urine. Denies pain/dysuria. denies abdominal pain, nausea, vomiting etc...vital signs stable/afebrile.
[2023-02-09 07:14] VITALS: BP 139/67; PULSE 99; RESP 18; TEMP 36.7; O2SAT 99
[2023-02-09 07:36] LABS: Basophils % 0.5 % (0.1-2.0); Eosinophils # 0.4 K/mm3 (0.0-0.4); Eosinophils % 5.2 % (0.1-12.0); Hematocrit 34.2 % (42.0-52.0); Hemoglobin 11.2 g/dL (14.1-18.0); Lymphocytes # 2.6 K/mm3 (0.7-4.5); Lymphocytes % 31.2 % (10-50); Mean Corpuscular HGB Conc 32.7 g/dL (31.8-35.4); Mean Corpuscular Hemoglobin 32.3 pg (27.0-31.2); Mean Platelet Volume 8.1 fl (7.4-10.4); Monocytes # 0.8 K/mm3 (0.1-1.0); Monocytes % 9.9 % (1.7-9.3); Neutrophils # 4.4 K/mm3 (1.8-7.8); Neutrophils % 53.2 % (37.0-80.0); Platelet Count 255 K/mm3 (142-424); Red Blood Count 3.45 M/mm3 (4.60-6.20); Red Cell Distribution Width 12.9 % (11.5-17.5); White Blood Count 8.3 K/mm3 (4.8-10.8)
[2023-02-09 07:41] LABS: Chloride 107 mmol/L (98-107); Potassium 4.4 mmoL/L (3.5-5.1); Sodium 140 mmol/L (136-145)
[2023-02-09 07:44] LABS: Alanine Aminotransferase 24 U/L (12-78); Albumin Level 3.7 g/dl (3.5-5.0); Albumin/Globulin Ratio 1.1 (1.1-1.8); Alkaline Phosphatase 93 U/L (38-126); Anion Gap 10.4 mEq/L (5-15); Aspartate Amino Transferase 31 U/L (17-59); Bilirubin,Total 0.2 mg/dl (0.2-1.3); Blood Urea Nitrogen 44 mg/dl (9-20); Calcium 8.9 mg/dl (8.4-10.2); Carbon Dioxide 27 mmol/L (22.0-30.0); Creatinine Clearance Estimated 27 mL/min (50-200); Estimated Glomerular Filt Rate 26 ml/min (>60); GFR (African American) 32 ML/MIN (>60); Globulin 3.4 g/dL (1.3-3.2); Glucose 101 mg/dl (74-100); Magnesium 2.3 mg/dl (1.6-2.3); Total Protein,Serum 7.1 g/dl (6.3-8.2)
--- NOTE | 2023-02-09 11:10 | EXP.DC.SUM ---
General Admission date:: 02/08/23 Discharge date: 02/09/23 HPI HPI HPI: This is a 82 yo male with PMHx CAD s/p stent placement on home Brillinta. CHF, HTN, HLD, bladder diverticulosis who came to ER for evaluation of gross hematuria, which they first noticed upon waking up this morning. The urine has been dark in color throughout the day. The patient denies any pain associated with urination and reports no recent changes in urinary habits. Admitted for treatment and management. Hospital Course Hospital Course Hospital Course: 82 yo male with PMHx CAD s/p stent placement on home Brillinta. CHF, HTN, HLD, bladder diverticulosis who came to ER for evaluation of gross hematuria, which they first noticed upon waking up this morning. The urine has been dark in color throughout the day. During ER initial workup included collecting UA that is pending for Culture. hematuria comfirmed. initial set of lab showed mild anemia, elevated creatinine form his baseline and diminished GFR. Admitted for IV antibiotics and serial labs. Kidney function is showing some slight improvement. Further history, patient wakes up at night to urinate multiple times. Concern for longstanding BPH as culprit for his bladder diverticuli. Discussed benefits of seeing a urologist. He has seen on once before for obstruction, they inserted a noah that resolved his issue and he has not seen anyone since. Given his clinical stability, slight improvement in creatinine, and stable hemoglobin, meeting criteria for discharge home. Will transition oral antibiotics for UTI. Problems addressed as follows: -UTI - Gross hematuria: -Bladder diverticulum Does not seems to be intra-glomerular due to lack of RBC cast in the urine. patient on home Brillinta. Decision to hold Brilinta. Still having some hematuria at discharge however seeing improvement in creatinine to 2.3. Suspect baseline is 1.9-2. Concern for component of obstructive nephropathy. Benefit from urology eval. Case management consult placed to assist with urology referral on Saturday. Patient initiated on tamsulosin 0.4 mg nightly. Patient was initiated on ceftriaxone. Transition to levofloxacin at discharge to complete 7-day course for UTI. -TEJAL on CKD: more likely prerenal azotemia. Responded to IV hydration. Creatinine 2.3 on discharge. Baseline 1.9-2. -HTN, CAD, CHF HLD: conditions are stable. Will hold brillinta until hematuria improve. Continue aspirin. Continue medications for can fluting Lasix 20 mill's daily, metoprolol 50 mg daily, resume Entresto at discharge. Full code. Plan discussed with patient and . They agreed with the plan. Further recommendation will be implemented based on the future outcomes. Stable for discharge home. Spent 35 minutes in discharge counseling, documentation, chart review, and direct care with patient. Exam Data for Last 24 hours Vital signs and Labs for Last 24 Hours: Temp Pulse Resp BP Pulse Ox O2 Del Method 98.0 F 99 H 18 139/67 99 Room Air 02/09/23 07:14 02/09/23 07:14 02/09/23 07:14 02/09/23 07:14 02/09/23 07:14 02/09/23 08:00 Laboratory Results - last 24 hr 02/08/23 16:49: Urine Color Brown, Urine Appearance Cloudy, Urine pH 6.5, Ur Specific [place] 1.025, Urine Protein 3+, Urine Glucose (UA) Negative, Urine Ketones Trace, Urine Blood 3+, Urine Nitrate Positive, Urine Bilirubin 3+ A, Urine Urobilinogen 2.0, Ur Leukocyte Esterase 3+ A, Urine RBC Tntc, Urine WBC 5-10, Ur Squamous Epith Cells None, Urine Bacteria 1+ 02/08/23 17:03: WBC 8.0, RBC 3.54 L, Hgb 11.4 L, Hct 35.3 L, MCV 99.7 H, MCH 32.2 H, MCHC 32.3, RDW 12.9, Plt Count 271, MPV 7.8, Neut % (Auto) 54.1, Lymph % (Auto) 29.6, [place] % (Auto) 10.4 H, Eos % (Auto) 5.4, Baso % (Auto) 0.5, Neut # (Auto) 4.3, Lymph # (Auto) 2.4, [place] # (Auto) 0.8, Eos # (Auto) 0.4, Baso # (Auto) 0.0, PT 10.7, INR 0.99, APTT 27.7, Sodium 139, Potassium 4.1, Chloride 104, Carbon Dioxide 27, Anion Gap 12.1, BUN 48 H, Creatini
[2023-02-09 15:04] LABS: Anion Gap 9.8 mEq/L (5-15); Blood Urea Nitrogen 40 mg/dl (9-20); Calcium 8.8 mg/dl (8.4-10.2); Carbon Dioxide 29 mmol/L (22.0-30.0); Chloride 107 mmol/L (98-107); Creatinine Clearance Estimated 28 mL/min (50-200); Estimated Glomerular Filt Rate 27 ml/min (>60); GFR (African American) 33 ML/MIN (>60); Glucose 129 mg/dl (74-100); Potassium 4.8 mmoL/L (3.5-5.1); Sodium 141 mmol/L (136-145)
[2023-02-09 15:06] VITALS: BP 119/68; PULSE 71; RESP 18; TEMP 37.2; O2SAT 99
[2023-02-10 11:50] LABS: Complement C3 181 mg/dL (82-167)
--- NOTE | 2023-02-11 13:47 | SW/DCPLANNER ---
Follow up phone call was made w/ this patient today. I spoke w/ patient's and she stated that he is doing well at home and is feeling better. Patient does have a follow up appointment w/ Urology at [facility] on 03/01/23.
--- NOTE | 2023-02-18 10:31 | PC.NURSE ---
Addendum entered by Divya Redmond RN 02/20/23 16:15: pt returned called today. Pt reports having no urinary symptoms, reports feeling better. Original Note: urine culture result on worklist. Notified Dr. Nascimento ( on shift at this time), pt d/c from 2nd floor on levaquin- ID and sensitivity shows resistance to Levaquin. Dr. Nascimento reviewed pts chart. Requests f/u call with pt to ask about symptoms, states if continued symptoms will need to have pt come in for IV antibiotics based on culture ID and sensitivity results. spoke with pts on the phone- states burning with urination and blood in urine is gone, reports pt is still having lower back pain at times. She gave me pts phone number to speak with him - [phone]- no answer voicemail left for pt. notified dr. nascimento of what pts said and waiting for return call from pt.
== END 2023-02-09 15:45 | disposition home or self-care (01) ==
LOC: ER 17:04 → 2ND 20:37
PROVIDERS: Nurse Practitioner Family; Admitting Provider Internal Medicine Adolescent Medicine; Emergency Provider Emergency Medicine; PCP Nurse Practitioner; Visit Provider Internal Medicine Adolescent Medicine
DX: N30.01 Acute cystitis with hematuria (principal); R31.0 Gross hematuria; N17.9 Acute kidney failure, unspecified; N18.9 Chronic kidney disease, unspecified; N32.3 Diverticulum of bladder; I13.0 Hypertensive heart and chronic kidney disease with heart failure and stage 1 through stage 4 chronic kidney disease, or unspecified chronic kidney disease; Z95.5 Presence of coronary angioplasty implant and graft; E78.2 Mixed hyperlipidemia; I50.41 Acute combined systolic (congestive) and diastolic (congestive) heart failure; I25.10 Atherosclerotic heart disease of native coronary artery without angina pectoris; I70.1 Atherosclerosis of renal artery; I65.23 Occlusion and stenosis of bilateral carotid arteries; Z79.899 Other long term (current) drug therapy; R79.89 Other specified abnormal findings of blood chemistry
CPT/HCPCS: 36415; 74176; 80048; 80053; 81001; 82550; 83735; 85025; 85610; 85730; 86161; 87086; 99285; G0378; J0696

== ENCOUNTER → 2023-02-14 23:24 | Outpatient (CLI) | payer MEDICARE, SELFPAY ==
[2023-02-14 18:30] LABS: Anion Gap 16.4 mEq/L (5-15); Basophils % 0.2 % (0.1-2.0); Blood Urea Nitrogen 38 mg/dl (9-20); Calcium 9.4 mg/dl (8.4-10.2); Carbon Dioxide 27 mmol/L (22.0-30.0); Chloride 102 mmol/L (98-107); Eosinophils # 0.4 K/mm3 (0.0-0.4); Eosinophils % 3.8 % (0.1-12.0); Estimated Glomerular Filt Rate 29 ml/min (>60); GFR (African American) 35 ML/MIN (>60); Glucose 113 mg/dl (74-100); Hematocrit 34.3 % (42.0-52.0); Hemoglobin 11.5 g/dL (14.1-18.0); Lymphocytes # 1.9 K/mm3 (0.7-4.5); Lymphocytes % 20.7 % (10-50); Mean Corpuscular HGB Conc 33.7 g/dL (31.8-35.4); Mean Corpuscular Hemoglobin 34.2 pg (27.0-31.2); Mean Corpuscular Volume 101.6 fl (80-94); Mean Platelet Volume 9.2 fl (7.4-10.4); Monocytes # 0.7 K/mm3 (0.1-1.0); Monocytes % 7.9 % (1.7-9.3); Neutrophils # 6.2 K/mm3 (1.8-7.8); Neutrophils % 67.4 % (37.0-80.0); Platelet Count 266 K/mm3 (142-424); Potassium 4.4 mmoL/L (3.5-5.1); Red Blood Count 3.37 M/mm3 (4.60-6.20); Red Cell Distribution Width 13.1 % (11.5-17.5); Sodium 141 mmol/L (136-145); White Blood Count 9.2 K/mm3 (4.8-10.8)
== END ==
PROVIDERS: PCP Nurse Practitioner; Visit Provider Nurse Practitioner
DX: N17.9 Acute kidney failure, unspecified (principal); N18.9 Chronic kidney disease, unspecified; N39.0 Urinary tract infection, site not specified; R31.0 Gross hematuria
CPT/HCPCS: 80048; 85025

== ENCOUNTER → 2023-03-12 13:40 | Outpatient (CLI) | payer MEDICARE, SELFPAY ==
--- NOTE | 2023-03-12 13:41 | CA_ITS ---
FINAL REPORT TECHNIQUE: Leigh scale, color and spectral doppler images of the bilateral carotid arteries were obtained. CLINICAL HISTORY: CONRAD,HTN,CAD,BRUIT,KNOWN 70-99% STENOSIS BETTY ICA'S COMPARISON: 12/04/2021 FINDINGS: Peak systolic velocity in the right internal carotid artery is 643 cm/sec. The internal carotid to common carotid artery ratio is 11.6. There is significant carotid artery stenosis and severe significant plaque formation. The right vertebral artery is normal in direction. Peak systolic velocity in the left internal carotid artery is 260 cm/sec. The internal carotid to common carotid artery ratio is 3.3. There is significant carotid artery stenosis and severe plaque formation. The left vertebral artery is normal in direction. IMPRESSION: There is 70 to 99% stenosis of the bilateral internal carotid arteries. Antegrade flow is present in the vertebral arteries bilaterally. Reviewed, Interpreted and Dictated by Pau Kirby MD Transcribed by Anjali Zurita Authenticated and [facility]
--- NOTE | 2023-03-12 14:10 | CT_ITS ---
FINAL REPORT TECHNIQUE: Thin section axial images were obtained from the lung apices through the upper abdomen without contrast. This study was performed with techniques to keep radiation doses as low as reasonably achievable (ALARA). Individualized dose reduction techniques using automated exposure control or adjustment of mA and/or kV according to the patient's size were employed. CLINICAL HISTORY: Shortness of breath COMPARISON: 11/23/2021 FINDINGS: Multiple small mediastinal lymph nodes are unchanged. There is no hilar or axillary lymphadenopathy. No pleural or pericardial effusion. The heart is enlarged with prominent coronary artery calcifications. There is a 5 mm left upper lobe nodule seen on image 31 which is unchanged. There is evidence of granulomatous disease. Lungs are otherwise clear.. Limited, unenhanced evaluation of the upper abdomen is without acute abnormality. Nonobstructing left renal stone. There is no acute osseous abnormality. IMPRESSION: No acute intrathoracic abnormality. Stable 5 mm left upper lobe pulmonary nodule. Continued follow-up recommended. Reviewed, Interpreted and Dictated by Pau Kirby MD Transcribed by Marly Ponce Authenticated and [facility]
== END ==
PROVIDERS: PCP Physician Assistant; Visit Provider Physician Assistant
DX: E78.5 Hyperlipidemia, unspecified (principal); I10 Essential (primary) hypertension; I25.10 Atherosclerotic heart disease of native coronary artery without angina pectoris; I25.5 Ischemic cardiomyopathy; I50.9 Heart failure, unspecified; I65.23 Occlusion and stenosis of bilateral carotid arteries
CPT/HCPCS: 71250; 93880